=== PATIENT | female | born 1950 | race Caucasian/White ===

== ENCOUNTER 2019-12-01 08:43 | Outpatient (CLI) | payer MEDICARE, SELFPAY ==
--- NOTE | ~2019-12-01 | CT_ITS ---
EXAMINATION: CT lung screening EXAM DATE: 12/01/2019 09:12 INDICATION: Bladder cancer. Personal history of nicotine dependence. TECHNIQUE: Spiral low dose CT of the chest without contrast. Axial, coronal and sagittal images were reviewed. The dose-length product (DLP) for this examination was 61.85 mGy-cm. The exposure was ta ilored according to patient size (auto mA exposure control), and iterative reconstruction (ASIR) was used as additional dose reduction technique. Comparison is made to prior examination from 08/16/2018. FINDINGS: Resolution of previously seen endobronchial debris. There is mild emphysema and hyperinfla tion. Biapical scarring and change. There is 3 mm left suprahilar nodule unchanged. There is no medi astinal, hilar or axillary lymphadenopathy. There are no pleural or pericardial effusions. There is no pneumothorax. Heart normal in size. No evidence of coronary arterial calcification. Upper a bdomen is unremarkable. Small sclerotic right seventh rib focus unchanged. IMPRESSION: Lung-RADS category 2, benign appearance or behavior (<1% chance of malignancy); recommend continued LDCT screening in 1 year. Reviewed, dictated and finalized at location B. S [employer]
== END 2019-12-01 08:44 | disposition home or self-care (01) ==
PROVIDERS: PCP Internal Medicine; Visit Provider Internal Medicine
DX: Z12.2 Encounter for screening for malignant neoplasm of respiratory organs (principal); Z87.891 Personal history of nicotine dependence
CPT/HCPCS: G0297

== ENCOUNTER 2020-03-20 10:09 | Observation (INO) | payer MEDICARE, SELFPAY ==
[2020-03-20] VITALS (10 sets, daily range): BP systolic 150–168; BP diastolic 43–63; PULSE 74–83; RESP 15–20; TEMP 36.8–37.3; O2SAT 96–98; BMI 27.1
--- NOTE | 2020-03-20 10:15 | ED.GENADULT ---
HPI - General Adult General Chief complaint: Recheck/Abnormal Lab/Rx Stated complaint: LOW H/H Time Seen by Provider: 03/20/20 10:15 Source: patient Mode of arrival: ambulatory Limitations: no limitations History of Present Illness HPI narrative: Patient is a 69-year-old female who presents for evaluation at the request of her primary care provider for low hemoglobin. Per PCP Dr. Guerra, patient reportedly had been seeing him for shortness of breath. Patient had reported worsening shortness of breath with exertion. Patient had denied any dark or tarry stools. Patient was found to have an outpatient hemoglobin of 6.4, microcytic anemia. Patient presented to our facility for evaluation and possible transfusion. At the time of assessment, patient reports that she has been short of breath with exertion, and occasionally at rest. She states she has been very fatigued. No lightheadedness or dizziness. No dark or tarry stools. Related Data Home Medications Medication Instructions Recorded Confirmed aspirin 81 mg tablet,delayed 81 mg PO DAILY 11/16/19 01/09/20 release clopidogrel 75 mg tablet 75 mg PO DAILY 11/16/19 01/09/20 fluticasone propionate 50 2 spray NASAL DAILY 11/16/19 01/09/20 mcg/actuation nasal spray,suspension Allergies Allergy/AdvReac Type Severity Reaction Status Date / Time No Known Allergies Allergy Verified 03/20/20 10:16 Review of Systems Review of Systems: Narrative: CONSTITUTIONAL: Denies fever, chills, or sweats. EYES: Denies visual changes, redness, or discharge. ENT: Denies rhinorrhea, congestion, sore throat, or otalgia. CARDIOVASCULAR: Denies chest pain, palpitations, or edema. RESPIRATORY: Reports shortness of breath GASTROINTESTINAL: Denies abdominal pain, nausea, vomiting, or diarrhea. GENITOURINARY: Denies dysuria or hematuria. SKIN: Denies rash or itching. MUSCULOSKELETAL: Denies back pain, joint pain, or myalgia. NEUROLOGIC: Denies headache, numbness, or weakness. Reports fatigue. [facility] Past Medical History Medical History Anxiety with depression Benign essential hypertension Bladder tumor BMI 27.0-27.9,adult DM type 2 (diabetes mellitus, type 2) Encounter for Medicare annual wellness exam Hearing loss Hx-TIA (transient ischemic attack) Hyperlipidemia On nursing home drug therapy Ovarian mass Personal history of nicotine dependence Right carotid bruit Toxic nodular goiter URI (upper respiratory infection) Family History Family History Mother Family history of osteoporosis Family history of Parkinson's disease Family history of primary malignant neoplasm of liver Family history of malignant neoplasm of breast in first degree relative Father Family history of heart disease in male family member before age 55 Family history of cardiovascular disease Family history of chronic obstructive pulmonary disease Social History Social History Second hand tobacco smoke exposure: Yes Alcohol intake: never Exam Narrative: Exam Narrative: GENERAL: Awake, alert, conversant HEAD: Normocephalic, atraumatic. EYES: PERRLA and EOMI. ENT: Nares clear, no rhinorrhea or epistaxis. Mucous membranes moist. NECK: Supple. CHEST: No respiratory distress, breathing even and non labored HEART: Regular rate, sinus rhythm ABDOMEN:Non distended, non tender Rectal: Guaic negative EXTREMITIES: Normal range of motion. No edema. SKIN: Pale, warm, dry, no rash. NEURO:No focal deficits. Alert and oriented x3 Course Vital Signs Vital signs: Vital Signs Temperature 36.9 C 03/20/20 10:14 Pulse Rate 83 03/20/20 10:14 Respiratory Rate 15 03/20/20 10:14 Blood Pressure 158/54 H 03/20/20 10:14 Pulse Oximetry 97 03/20/20 10:14 Temperature 36.9 C 03/20/20 10:14 Pulse Rate 81 03/20/20 11:01 Respiratory Ra
[2020-03-20 10:36] LABS: Basophils Absolute Auto 0.1 K/mm3 (0.0-0.1); Basophils Percent Auto 0.9 % (0.2-1.2); Eosinophils Absolute Auto 0.1 K/mm3 (0-0.3); Eosinophils Percent Auto 2.2 % (0-4.4); Hematocrit 22.1 % (37.0-47.0); Immature Granulocyte Absolute 0.01 K/mm3 (0.00-0.031); Immature Granulocyte Percent A 0.2 % (0-0.5); Lymphocytes Absolute Auto 1.43 K/mm3 (0.9-3.2); Lymphocytes Percent Auto 24.6 % (18.3-44.2); Mean Corpuscular HGB Conc 29.9 g/dl (32-36); Mean Corpuscular Hemoglobin 20.1 pg (26-34); Mean Corpuscular Volume 67.4 fl (80-100); Mean Platelet Volume 9.7 fl (7.4-10.4); Monocytes Absolute Auto 0.5 K/mm3 (0.1-0.6); Monocytes Percent Auto 8.6 % (2.6-8.5); Neutrophils Absolute Auto 3.7 K/mm3 (1.3-6.7); Neutrophils Percent Auto 63.5 % (45.5-73.1); Platelet Count Result 434 k/mm3 (150-375); Red Blood Count 3.28 M/mm3 (4.2-5.4); Red Cell Distribution Width 18.5 % (11.5-14.5); White Blood Count 5.8 K/mm3 (4.5-10.0)
[2020-03-20 10:37] LABS: Hemoglobin 6.6 g/dL (12.0-15.0)
[2020-03-20 10:43] LABS: Hypochromasia 3+ (NORMAL); Ovalocytes 1+ (NORMAL); Platelet Estimate Increased (Adequate)
[2020-03-20 10:48] LABS: Blood Urea Nitrogen 19 mg/dL (7-17); Calcium 9.1 mg/dL (8.4-10.2); Carbon Dioxide 27 mmol/L (22-30); Chloride 103 mmol/L (98-107); Estimated CRCL calculation 45 ml/min; Estimated Glomerular Filt Rate > 60; Glucose 129 mg/dL (65-105); Potassium 4.2 mmol/L (3.4-5.0); Sodium 137 mmol/L (137-145)
[2020-03-20 10:49] LABS: Prothrombin Time 12.8 Seconds (11.1-14.7)
[2020-03-20 10:50] LABS: Partial Thromboplastin Time 23.5 SECONDS (22.3-36.8)
[2020-03-20 13:05] LABS: Iron 22 ug/dL (37-170)
[2020-03-20 13:14] LABS: Percent Iron Saturation 5 % (20-50)
[2020-03-20 13:26] LABS: Immature Reticulocyte Fraction 27.1 % (3.0-15.9); Reticulocyte Hemoglobin Conten 18.2 pg (28.2-35.7); Reticulocyte Percent 1.74 % (0.7-4.3); Reticulocytes Absolute 0.06 B/L (32.2-175.7)
--- NOTE | 2020-03-20 13:39 | WPDGICN ---
Assessment and Plan Assessment and plan (1) Symptomatic anemia: Code(s): D64.9 - Anemia, unspecified Status: Acute (2) Microcytic anemia: Code(s): D50.9 - Iron deficiency anemia, unspecified Status: Acute Assessment and Plan: Profound microcytic anemia identified in the emergency room. No obvious signs of GI blood loss. Stool Hemoccult ER actually was negative. Plan is to check iron studies. Repeat stool Hemoccult. Plan is for both colonoscopy an EGD to assess for possible GI etiology for anemia. If GI workup negative than hematology evaluation may be required. We will follow with you during this hospital stay. Patient is to be transfused to a stable hemoglobin as she is symptomatic at this level. (3) Ovarian mass: Code(s): N83.8 - Other noninflammatory disorders of ovary, fallopian tube and broad ligament Status: Acute Assessment and Plan: Patient reports a pelvic mass followed by Gynecology. She may need follow-up. It is uncertain how this contributes to her current anemia. (4) Bladder tumor: Code(s): D49.4 - Neoplasm of unspecified behavior of bladder Status: Acute Assessment and Plan: Bladder tumor resected in felt cured. 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 Patient reports progressive fatigue since November of 2019. She has become increasingly shortness of breath. Dyspnea on exertion. She has had significant weakness and muscle aches. She recently saw primary care physician Dr. Guerra who obtained a CBC revealing profound anemia. For this reason she was referred to the emergency room and subsequently admitted to the hospital. Patient denies any evidence for GI bleeding. Her stools are remain normal she denies any black stools. She has had no recent blood in her urine except prior to bladder surgery last year. She has no bruising. No other signs of blood loss. Any nose bleeds in the past have been minimal in nature. She denies abdominal pain. Her appetite is normal she has not lost weight. Her bowel habits are also normal. Family history is noncontributory. Patient's past history is significant for a toxic nodular goiter which is treated she is now on therapy for this. She had a history of a bladder carcinoma treated in resected in August of 2019. Review of Systems Review of Systems: All systems reviewed & are unremarkable except as noted in HPI and below PMFSH Past Medical History Medical History Anxiety with depression Benign essential hypertension Bladder tumor BMI 27.0-27.9,adult DM type 2 (diabetes mellitus, type 2) Encounter for Medicare annual wellness exam Hearing loss Hx-TIA (transient ischemic attack) Hyperlipidemia On [facility] drug therapy Ovarian mass Personal history of nicotine dependence Right carotid bruit Toxic nodular goiter URI (upper respiratory infection) Family History Family History Mother Family history of osteoporosis Family history of Parkinson's disease Family history of primary malignant neoplasm of liver Family history of malignant neoplasm of breast in first degree relative Father Family history of heart disease in male family member before age 55 Family history of cardiovascular disease Family history of chr
[2020-03-20 13:41] LABS: Ferritin 4.65 ng/mL (11.1-264)
[2020-03-20] MEDS: SODIUM CHLORIDE 0.9% IV 250 ML 30 ML IV CONT (13:55)
--- NOTE | 2020-03-20 14:16 | ADMGEN ---
This patient, Mojgan Gold, was admitted to 2 Medical Room 257-01. Patient/family oriented to hospital policies and general routines including ID bracelet, bed and alarms, visiting hours, pain management, procedures, bathroom and other care routines, personal items, smoking policy, room service/diet, and visiting hours. Valuables list has been completed. Information on how to activate the Rapid Response Team has been discussed. Patient/Family are encouraged to report perceived risks to care and to ask questions if they do not understand what they are told or what they should do.
[2020-03-20] MEDS: PEG (High)/E-LYTE SOLN 4,000 ML BTL 4000 ML PO (15:31)
--- NOTE | 2020-03-20 15:40 | PM.IMHP ---
H&P: HPI History of Present Illness Chief complaint: Low hemoglobin. Narrative: Mojgan Gold is a 69-year-old female with history of TIA, GERD, hypertension, type 2 diabetes mellitus, hyperthyroidism, and history of bladder cancer who presented to the emergency department earlier today for evaluation of ?low hemoglobin.? A patient labs were drawn yesterday for evaluation of progressive shortness of breath and fatigue over the past several months. She was found to be anemic and was directed to the emergency department. With further questioning, she does report an increase in her GERD symptoms over the past several months her symptoms and she has begun taking Nexium once again. She has not had any overt abdominal pain, however. Her stools are unremarkable and she denies melena and hematochezia. She is on aspirin and clopidogrel due to history of TIA, and on occasion she will take ibuprofen (maybe 1 time a week for headache or pain). She drinks a couple of cups of coffee a day and she denies any significant alcohol use. No history of peptic ulcers. She further denies epistaxis, hemoptysis, hematemesis, vaginal bleeding, hematuria (although she did have hematuria and fall 2018 which led to the diagnosis of her bladder cancer). Review of Systems Review of Systems: Narrative: Twelve systems were reviewed with pertinent positives and negatives as per HPI. Weight has remained stable, and in fact she thinks she may have gained a few pounds during this [id number] order. She rarely has lightheadedness with position changes. No fever, chills, or sweats. She denies recent cold and flu symptoms. No chest pain, palpitations, or racing heart. No nausea, vomiting, or diarrhea. She denies dysuria and hematuria. Except as documented, all other systems were reviewed and are negative. [facility] Past Medical History Medical History (Updated 03/20/20 @ 20:22 by Karolina Feldman PA-C) Adnexal mass (~06/2019) 8.1 centimeter hypoechoic mass in the left adnexa with differential diagnosis to include pedunculated fibroid or ovarian mass. Anxiety with depression Benign essential hypertension Bladder tumor (~08/2019) Status post TURBT per Dr. Herrera. Gastroesophageal reflux disease Hearing loss Hyperlipidemia Hyperthyroidism Moderate mitral valve regurgitation Noted on [facility] in February 2016. Osteoporosis Right carotid bruit Carotid Doppler ultrasounds showed < 50% stenosis in bilateral internal carotid arteries in June 2019. Toxic nodular goiter Transient ischemic attack Type 2 diabetes mellitus Hemoglobin A1c was 6.1% in March 2019. Surgical History Surgical History (Updated 03/20/20 @ 20:19 by Karolina Feldman PA-C) Status post surgical removal and fulguration of bladder neoplasm (~08/2019) Family History Family History Mother Family history of osteoporosis Family history of Parkinson's disease Family history of primary malignant neoplasm of liver Family history of malignant neoplasm of breast in first degree relative Father Family history of heart disease in male family member before age 55 Family history of cardiovascular disease Family history of chronic obstructive pulmonary disease Social History Social History (Updated 03/20/20 @ 20:20 by Karolina Feldman PA-C) Social History: The patient lives in [place] with her spouse. They have 2 children. 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 She has smoked between 0.5 and 1 pack of cigarettes per day and quit in October 2019. She denies alcohol and illicit substance abuse. She designates her , Presley, as her surrogate decision maker and she wishes to be a full code. Smoking packs per day: 1 Smoking cigarettes per day: 20.0 Years smoked: 50 Smoking pack-years: 50.00 Smoking status: Former smoker Second hand tobacco smoke exposure: Yes Alcohol intake: never Substance use: never Gender identity (if
[2020-03-20 16:59] LABS: Glucose Point of Care 89 (65-105)
[2020-03-20 20:33] LABS: IFOB Positive Control Positive; Immunochemical Fecal Occult Bl Positive (N)
[2020-03-20] MEDS: PAROXETINE 20 MG TABLET 40 MG PO (22:14)
[2020-03-20] MEDS: buPROPion HCL XL (24 HR) 150 MG TABCR PO (22:14)
[2020-03-20 22:29] LABS: Glucose Point of Care 103 (65-105)
[2020-03-21] VITALS (9 sets, daily range): BP systolic 133–172; BP diastolic 37–55; PULSE 74–90; RESP 14–19; TEMP 36.7–37.3; O2SAT 94–98
[2020-03-21 05:17] LABS: Basophils Percent Auto 0.5 % (0.2-1.2); Eosinophils Absolute Auto 0.2 K/mm3 (0-0.3); Hematocrit 23.7 % (37.0-47.0); Hemoglobin 7.1 g/dL (12.0-15.0); Immature Granulocyte Absolute 0.02 K/mm3 (0.00-0.031); Immature Granulocyte Percent A 0.3 % (0-0.5); Lymphocytes Absolute Auto 1.98 K/mm3 (0.9-3.2); Lymphocytes Percent Auto 26.3 % (18.3-44.2); Mean Corpuscular Hemoglobin 20.5 pg (26-34); Mean Corpuscular Volume 68.3 fl (80-100); Mean Platelet Volume 9.4 fl (7.4-10.4); Monocytes Absolute Auto 0.7 K/mm3 (0.1-0.6); Monocytes Percent Auto 8.6 % (2.6-8.5); Neutrophils Absolute Auto 4.7 K/mm3 (1.3-6.7); Neutrophils Percent Auto 62.3 % (45.5-73.1); Platelet Count Result 362 k/mm3 (150-375); Red Blood Count 3.47 M/mm3 (4.2-5.4); Red Cell Distribution Width 19.4 % (11.5-14.5); White Blood Count 7.5 K/mm3 (4.5-10.0)
[2020-03-21 05:22] LABS: Hemoglobin A1C 6.4 % (<5.7)
[2020-03-21 05:31] LABS: Alanine Aminotransferase 29 U/L (4-35); Albumin Level 3.6 g/dL (3.5-5.1); Alkaline Phosphatase 66 U/L (38-126); Aspartate Amino Transferase 31 U/L (14-36); Bilirubin,Total 0.3 mg/dL (0.2-1.3); Blood Urea Nitrogen 15 mg/dL (7-17); Calcium 8.3 mg/dL (8.4-10.2); Carbon Dioxide 26 mmol/L (22-30); Chloride 105 mmol/L (98-107); Estimated CRCL calculation 50 ml/min; Estimated Glomerular Filt Rate > 60; Glucose 88 mg/dL (65-105); Magnesium 1.9 mg/dL (1.6-2.3); Sodium 137 mmol/L (137-145)
--- NOTE | 2020-03-21 07:04 | PC.NURSE ---
Pt to GI lab for colonoscopy/EGD. Purse, phone, ipad locked in cabinet.
[2020-03-21] MEDS: LACTATED RINGERS 1,000 ML 150 ML IV CONT (07:15)
[2020-03-21 07:25] LABS: Free T4 Free Thyroxine Reflex 1.11 ng/dL (0.78-2.19)
[2020-03-21 07:27] LABS: Glucose Point of Care 103 (65-105)
--- NOTE | 2020-03-21 07:27 | WPDANESEPPF ---
Anes - Initial Pre Proc Eval Procedure: Operation Date: 03/21/20 08:00 Proposed Procedures p Esophagogastroduodenoscopy & Colonoscopy - Praneeth Corral MD Date/Time: 03/21/20 07:27 Surgeon: Elizabeth Lane MD Pre Op Diagnosis: Low hemoglobin. Patient Data Age: 69 Gender: F Height: 5 ft 2 in Weight: 67.2 kg Last Vital Signs Temp 98.4 F 03/21/20 07:10 Pulse 84 03/21/20 07:10 Resp 16 03/21/20 07:10 BP 172/50 H 03/21/20 07:10 Pulse Ox 96 03/21/20 07:10 Allergies Allergy/AdvReac Type Severity Reaction Status Date / Time No Known Allergies Allergy Verified 03/21/20 07:07 Home Medications Medication Instructions Recorded Confirmed Type aspirin 81 mg tablet,delayed 81 mg PO DAILY 11/16/19 03/20/20 History release bupropion HCl 150 mg 24 hr tablet, 150 mg PO QAM #90 tablet 11/16/19 03/20/20 Rx extended release clopidogrel 75 mg tablet 75 mg PO DAILY 11/16/19 03/20/20 History fluticasone propionate 50 2 spray NASAL DAILY 11/16/19 03/20/20 History mcg/actuation nasal spray,suspension metformin 500 mg tablet 500 mg PO BID #180 tablet 11/16/19 03/20/20 Rx paroxetine HCl 40 mg tablet 40 mg PO DAILY #90 tablet 11/16/19 03/20/20 Rx atorvastatin 10 mg PO DAILY 03/20/20 03/20/20 History ezetimibe [Zetia] 10 mg PO DAILY 03/20/20 03/20/20 History methimazole 5 mg PO DAILY 03/20/20 03/20/20 History Laboratory Tests 03/20/20 03/20/20 03/20/20 10:20 10:20 10:20 WBC 5.8 K/mm3 K/mm3 (4.5-10.0) RBC 3.28 M/mm3 L M/mm3 (4.2-5.4) Hgb 6.6 g/dL L* g/dL (12.0-15.0) Hct 22.1 % L % (37.0-47.0) MCV 67.4 fl L fl (80-100) MCH 20.1 pg L pg (26-34) MCHC 29.9 g/dl L g/dl (32-36) RDW 18.5 % H % (11.5-14.5) Plt Count 434 k/mm3 H k/mm3 (150-375) MPV 9.7 fl fl (7.4-10.4) Immature Gran % (Auto) 0.2 % % (0-0.5) Neut % (Auto) 63.5 % % (45.5-73.1) Lymph % (Auto) 24.6 % % (18.3-44.2) [place] % (Auto) 8.6 % H % (2.6-8.5) Eos % (Auto) 2.2 % % (0-4.4) Baso % (Auto) 0.9 % % (0.2-1.2) Lymph # (Auto) 1.43 K/mm3 K/mm3 (0.9-3.2) [place] # (Auto) 0.5 K/mm3 K/mm3 (0.1-0.6) Eos # (Auto) 0.1 K/mm3 K/mm3 (0-0.3) Baso # (Auto) 0.1 K/mm3 K/mm3 (0.0-0.1) Abs Immat Gran (auto) 0.01 K/mm3 K/mm3 (0.00-0.031) Absolute Neuts (auto) 3.7 K/mm3 K/mm3 (1.3-6.7) Absolute Nucleated RBC 0.0 K/mm3 K/mm3 (0.0-0.012) Nucleated RBC % 0.0 % % (0.0-0.2) Platelet Estimate Increased (Adequate) Hypochromasia 3+ (NORMAL) Ovalocytes 1+ (NORMAL) Absolute Retic Percent Retic Immature Retic Fraction Retic Hgb Content PT 12.8 Seconds Seconds (11.1-14.7) INR 1.0 APTT 23.5 SECONDS SECONDS (22.3-36.8) Sodium 137 mmol/L mmol/L (137-145) Potassium 4.2 mmol/L mmol/L (3.4-5.0) Chloride 103 mmol/L mmol/L (98-107) Carbon Dioxide 27 mmol/L mmol/L (22-30) BUN 19 mg/dL H mg/dL (7-17) Creatinine 0.90 mg/dL mg/dL (0.7-1.0) Estim Creat Clear Calc 45 ml/min ml/min Estimated GFR > 60 (59 - ) Glucose 129 mg/dL H mg/dL (65-105) POC Capillary Glucose Hemoglobin A1c Calcium 9.1 mg/dL mg/dL (8.4-10.2) Magnesium Iron TIBC % Saturation Ferritin Total Bilirubin AST ALT Alkaline Phosphatase Total Protein Albumin TSH (Reflex) Free T4 Total T3 Stl Occult Blood (IFOB) Blood Type Antibody Screen Crossmatch
[2020-03-21] MEDS: BENZOCAINE (*SP) 60 ML SPRAY CAN (HURRICAINE) 1 SPRAY MUCOUS MEM (08:13)
--- NOTE | 2020-03-21 08:16 | SUR.OPER ---
EGD ENDED AT 818 COLONOSCOPY STARTED AT 828
[2020-03-21 08:22] LABS: Total Triiodothyronine (T3) 1.17 NG/ML (0.97-1.69)
[2020-03-21] MEDS: EZETIMIBE 10 MG TABLET PO (09:35)
[2020-03-21] MEDS: methiMAzole 5 MG TAB PO (09:35)
[2020-03-21] MEDS: ATORVASTATIN 10 MG TABLET PO (09:36)
[2020-03-21] MEDS: FERROUS SULFATE 324 MG TABLET PO (09:38)
[2020-03-21] MEDS: PANTOPRAZOLE 40 MG TABLET PO (09:38)
[2020-03-21] MEDS: IRON SUCROSE COMPLEX 200 MG in SODIUM CHLORIDE 0.9% IV 50 ML 120 MG IVPB (11:22)
[2020-03-21 11:32] LABS: Glucose Point of Care 105 (65-105)
--- NOTE | 2020-03-21 12:42 | PM.IMPN ---
Progress Note: A&P Assessment and Plan (1) Microcytic anemia: Code(s): D50.9 - Iron deficiency anemia, unspecified Status: Acute Assessment and Plan: Patient presents at the request of her primary care provider due to low Hgb on outpatient labs. She has been feeling fatigued over the last few months. Hgb 6.6 on arrival and she received 1 unit RBC yesterday 03/20. Iron studies consistent with iron deficiency anemia. IV Venofer x1 today, start oral iron supplementation. Dr. Corral consulted - appreciate input. Upper and lower GI eval today demonstrated uncomplicated internal hemorrhoids, single nonbleeding gastric ulcer in the antrum. Continue Protonix, avoid NSAIDs. Recommends repeat EGD in 2 months. Recheck H&H in AM. Anticipate possible discharge tomorrow if H&H are stable. (2) Benign essential hypertension: Code(s): I10 - Essential (primary) hypertension Status: Acute Assessment and Plan: BPs followed by Dr Guerra, checks blood pressures at home. Elevated here. Follow-up with PCP and may need to start on oral antihypertensives if BPs still elevated out of this acute setting. (3) Type 2 diabetes mellitus: Qualifiers: Diabetes mellitus terminal carman insulin use: without correction use Diabetes mellitus complication status: without complication Qualified Code(s): E11.9 - Type 2 diabetes mellitus without complications Code(s): E11.9 - Type 2 diabetes mellitus without complications Status: Acute Assessment and Plan: Hgb A1c is 6.4. Home metformin is held currently. Continue monitor with Accu-Cheks and cover with SSI. (4) Hyperthyroidism: Code(s): E05.90 - Thyrotoxicosis, unspecified without thyrotoxic crisis or storm Status: Acute Assessment and Plan: History of toxic nodular goiter followed by endocrinology. Continue home methimazole. Subjective Date/time seen: 03/21/20 12:35 Interval history: Ms. Gold is a 69yo F admitted for anemia. She reports feeling tired but overall feels okay. She denies any chest pain or shortness of breath today. No black or red bloody stools. No nausea or vomiting and tolerated a diet well after GI eval this morning. She has no abdominal pain. Review of Systems Review of Systems: Narrative: Twelve systems were reviewed with pertinent positives and negatives as per HPI. Exam Narrative: Exam Narrative: General: Female resting comfortably in bed in no acute distress. HEENT: Normocephalic, EOMI, oral mucosa moist. Cardiovascular: Rate and rhythm are regular. Respiratory: Lungs clear to auscultation all garcia. Non-labored breathing. Abdomen: Soft, non-tender, non-distended, bowel sounds present. Extremities: Peripheral pulses intact. No edema. Neuro: No focal neurological deficits. Speech is clear. Objective Data Vital Signs Vital Signs: Last Vital Signs Temp 98.0 F 03/21/20 14:00 Pulse 81 03/21/20 14:00 Resp 16 03/21/20 14:00 BP 158/55 H 03/21/20 14:00 Pulse Ox 98 03/21/20 14:00 Intake/Output Intake/Output: Intake & Output 03/18/20 03/19/20 03/20/20 03/21/20 23:59 23:59 23:59 23:59 Intake Total 1010 350 Output Total 750 Balance 260 350 Meds/Results Medications: Active Medications Generic Name Dose Route Start Last Admin Trade Name Freq PRN Reason Stop Dose Admin Acetaminophen 650 mg 03/20/20 11:37 Tylenol Tablet PO Q4H PRN Mild Pain (1-3) or Fever Atorvastatin Calcium 10 mg 03/21/20 09:00 03/21/20 09:36 Lipitor PO 10 mg DAILY ENA Administration Bupropion HCl 150 mg 03/20/20 22:05 03/20/20 22:14 Wellbutrin Xl (24 Hr) PO 150 mg HS ENA Administration Dextrose 12.5 gm 03/20/20 16:00 Dextrose 50% Syringe IV PUSH PRN PRN Hypoglycemia Protocol Ezetimibe 10 mg 03/21/20 09:00
[2020-03-21 16:40] LABS: Glucose Point of Care 105 (65-105)
[2020-03-21] MEDS: buPROPion HCL XL (24 HR) 150 MG TABCR PO (20:51)
[2020-03-21] MEDS: PAROXETINE 20 MG TABLET 40 MG PO (20:51)
[2020-03-21 20:59] LABS: Glucose Point of Care 126 (65-105)
[2020-03-21] MEDS: NEBIVOLOL HCL 5 MG TABLET 10 MG PO (23:35)
[2020-03-22 05:26] LABS: Hematocrit 24.3 % (37.0-47.0); Hemoglobin 7.3 g/dL (12.0-15.0)
[2020-03-22 06:00] VITALS: BP 159/48; PULSE 85; RESP 12; TEMP 36.9; O2SAT 96
[2020-03-22 07:36] LABS: Glucose Point of Care 115 (65-105)
[2020-03-22 07:59] VITALS: PULSE 85; RESP 12; O2SAT 96
[2020-03-22] MEDS: FERROUS SULFATE 324 MG TABLET PO (08:48)
[2020-03-22] MEDS: NEBIVOLOL HCL 5 MG TABLET 10 MG PO (08:48)
[2020-03-22] MEDS: PANTOPRAZOLE 40 MG TABLET PO (08:49)
[2020-03-22] MEDS: methiMAzole 5 MG TAB PO (08:49)
[2020-03-22] MEDS: EZETIMIBE 10 MG TABLET PO (08:49)
[2020-03-22] MEDS: ATORVASTATIN 10 MG TABLET PO (08:50)
--- NOTE | 2020-03-22 09:07 | WPDGIPROGNO ---
Progress Note: A&P Additional Plan Patient alert and comfortable this morning. No additional bleeding. She denies abdominal pain. Physical exam reveals Vital Signs to be stable. HEENT exam unremarkable. She is anicteric. Lungs are clear. Heart without murmur. Abdomen bowel sounds are present soft nontender. Impression 1. Gastric ulcer. Most likely source of chronic GI blood loss. Suspect is been present for several months. Plan to avoid nonsteroidal anti-inflammatory agents. These are felt to be etiology for her ulcer. Continue proton pump inhibitor after discharge. Follow-up EGD in 2 months advised. Oral iron replacement to continue as well. Subjective Date/time seen: 03/22/20 09:07 Objective Data Vital Signs Vital Signs: Vital Signs - 24 hr 03/21/20 09:32 03/21/20 14:00 03/21/20 22:00 Temperature 36.7 C 37.3 C Pulse Rate 74 81 83 Respiratory Rate 19 16 16 Blood Pressure 158/55 H 152/48 H Pulse Oximetry 96 98 95 03/21/20 23:35 03/22/20 06:00 03/22/20 07:59 Temperature 36.9 C Pulse Rate 90 85 85 Respiratory Rate 12 12 Blood Pressure 159/48 H Pulse Oximetry 96 96 Intake/Output Intake/Output: Intake & Output 03/19/20 03/20/20 03/21/20 03/22/20 23:59 23:59 23:59 23:59 Intake Total 1010 1130 750 Output Total 750 150 800 Balance 260 980 -50 Meds/Results Medications: Active Medications Generic Name Dose Route Start Last Admin Trade Name Freq PRN Reason Stop Dose Admin Acetaminophen 650 mg 03/20/20 11:37 Tylenol Tablet PO Q4H PRN Mild Pain (1-3) or Fever Atorvastatin Calcium 10 mg 03/21/20 09:00 03/22/20 08:50 Lipitor PO 10 mg DAILY ENA Administration Bupropion HCl 150 mg 03/20/20 22:05 03/21/20 20:51 Wellbutrin Xl (24 Hr) PO 150 mg HS ENA Administration Dextrose 12.5 gm 03/20/20 16:00 Dextrose 50% Syringe IV PUSH PRN PRN Hypoglycemia Protocol Ezetimibe 10 mg 03/21/20 09:00 03/22/20 08:49 Zetia PO 10 mg DAILY ENA Administration Ferrous Sulfate 324 mg 03/21/20 09:00 06/04/20 08:48 Ferrous Sulfate PO 324 mg DAILY ENA Administration Fluticasone Propionate 2 spray 03/21/20 09:00 03/22/20 08:50 Flonase 0.05% Nasal [place] NASAL Not Given DAILY ENA Glucagon 1 mg 03/20/20 16:00 Glucagon For Inj IM PRN PRN Hypoglycemia Protocol Glucose 15 gm 03/20/20 16:00 Glutose 15 PO PRN PRN Hypoglycemia Protocol Dextrose 1,000 mls @ 100 mls/hr 03/20/20 16:00 Dextrose 5% 1,000 Ml IVPB PRN PRN Hypoglycemia Protocol Insulin Aspart 2 - 5 units 03/20/20 17:00 03/22/20 08:48 Novolog SUB-Q Not Given [facility] Protocol Methimazole 5 mg 03/21/20 09:00 03/22/20 08:49 Tapazole PO 5 mg DAILY ENA Administration Nebivolol 10 mg 03/21/20 21:00 03/22/20 08:48 Bystolic PO 10 mg DAILY ENA Administration Ondansetron HCl 4 mg 03/20/20 11:37 Zofran Inj IV PUSH Q4H PRN Nausea Pantoprazole Sodium 40 mg 03/21/20 09:00 03/22/20 08:49 Protonix PO 40 mg QAM ENA Administration Paroxetine HCl 40 mg 03/20/20 22:10 03/21/20 20:51 Paxil PO 40 mg HS ENA Administration Labs Labs: Laboratory Results - last 24 hr 03/21/20 03/21/20 03/21/20 11:21 16:38 20:55 Hgb Hct POC Capillary Glucose 105 105 126 H 03/22/20 03/22/20 05:12 07:34 Hgb 7.3 L Hct 24.3 L POC Capillary Glucose 115 H
--- NOTE | 2020-03-22 16:11 | PM.DS ---
DS: Admitting Diagnosis Admitting Diagnosis Admitting Diagnosis: Anemia, unspecified DS: Discharge Diagnosis Discharge Diagnosis (1) Microcytic anemia: Code(s): D50.9 - Iron deficiency anemia, unspecified Status: Acute Assessment and Plan: Date of Service 03/22/20 Ms. Gold is a 69yo F with history of hypertension, non-insulin dependent type 2 diabetes mellitus, and hyperthyroidism who presented to the ED at the instruction of PCP due to low hemoglobin on outpatient labs. She described feeling fatigued over the last several months. Hemoglobin was 6.6 on arrival and she received 1 unit packed RBC transfusion 03/20. GI was consulted and she underwent EGD and colonoscopy by Dr Corral 03/21/20 which demonstrated a single benign appearing, non-bleeding ulcer in the antrum. She was started on pantoprazole and advised to avoid NSAIDs. Iron studies demonstrated iron deficiency anemia. She received one iron infusion and was started on oral iron supplementation. She did not have any abdominal pain, nausea or vomiting. She was feeling improved and a little stronger prior to discharge. She was hemodynamically stable for discharge 03/22/20 with instructions to follow up with Dr Guerra for her anemia and schedule repeat EGD with Dr Corral in 2 months. Blood pressures elevated 150s 160s systolic here. Follow up with PCP. Consultations: -- GI - Dr Corral Patient presents at the request of her primary care provider due to low Hgb on outpatient labs. She has been feeling fatigued over the last few months. Hgb 6.6 on arrival and she received 1 unit RBC yesterday 03/20. Iron studies consistent with iron deficiency anemia. IV Venofer x1, started oral iron supplementation. Dr. Corral consulted. Upper and lower GI eval 03/21/20 demonstrated uncomplicated internal hemorrhoids, single nonbleeding gastric ulcer in the antrum. Continue Protonix, avoid NSAIDs. Recommends repeat EGD in 2 months H&H low but stable at discharge and patient is feeling well. Repeat labs outpatient and follow up with Dr Guerra. (2) Benign essential hypertension: Code(s): I10 - Essential (primary) hypertension Status: Acute Assessment and Plan: BPs followed by Dr Guerra, checks blood pressures at home. Elevated here. Follow-up with PCP and may need to start on oral antihypertensives if BPs still elevated out of this acute setting. (3) Type 2 diabetes mellitus: Qualifiers: Diabetes mellitus halfway insulin use: without halfway use Diabetes mellitus complication status: without complication Qualified Code(s): E11.9 - Type 2 diabetes mellitus without complications Code(s): E11.9 - Type 2 diabetes mellitus without complications Status: Acute Assessment and Plan: Hgb A1c is 6.4. Home metformin resumed at discharge. (4) Hyperthyroidism: Code(s): E05.90 - Thyrotoxicosis, unspecified without thyrotoxic crisis or storm Status: Acute Assessment and Plan: History of toxic nodular goiter followed by endocrinology. Continue home methimazole. DS: Summary Time Spent with Patient Time attestation: Total time spent providing and/or coordinating discharge services: 35 minutes Exam Narrative: Exam Narrative: Last Vital Signs Temp 98.4 F 03/22/20 06:00 Pulse 85 03/22/20 07:59 Resp 12 03/22/20 07:59 BP 159/48 H 03/22/20 06:00 Pulse Ox 96 03/22/20 07:59 General: Female resting comfortably in bed in no acute distress. HEENT: Normocephalic, EOMI, oral mucosa moist. Cardiovascular: Rate and rhythm are regular. Respiratory: Lungs clear to auscultation all garcia. Non-labored breathing. A
== END 2020-03-22 11:55 | disposition home or self-care (01) ==
LOC: ANHED 11:42 → ANH2MED 11:56
PROVIDERS: Internal Medicine Gastroenterology; Physician Assistant; Admitting Provider Hospitalist; Emergency Provider Emergency Medicine; PCP Internal Medicine; Visit Provider Hospitalist
PROC: 0DJ08ZZ Inspection of Upper Intestinal Tract, Via Natural or Artificial Opening Endoscopic (ICD-10-PCS; CPT 43235; principal; 2020-03-21 08:00)
DX: K25.4 Chronic or unspecified gastric ulcer with hemorrhage (principal); D50.9 Iron deficiency anemia, unspecified; K29.50 Unspecified chronic gastritis without bleeding; K64.8 Other hemorrhoids; I10 Essential (primary) hypertension; E78.5 Hyperlipidemia, unspecified; E11.9 Type 2 diabetes mellitus without complications; E05.90 Thyrotoxicosis, unspecified without thyrotoxic crisis or storm; K21.9 Gastro-esophageal reflux disease without esophagitis; N83.8 Other noninflammatory disorders of ovary, fallopian tube and broad ligament; Z79.82 Long term (current) use of aspirin; Z79.84 Long term (current) use of oral hypoglycemic drugs; Z79.899 Other long term (current) drug therapy; Z85.51 Personal history of malignant neoplasm of bladder; Z86.73 Personal history of transient ischemic attack (TIA), and cerebral infarction without residual deficits; Z87.891 Personal history of nicotine dependence
CPT/HCPCS: 43239; 45378; 36415; 36430; 80048; 80053; 82274; 82728; 83036; 83540; 83550; 83735; 84439; 84443; 84480; 85014; 85018; 85025; 85046; 85610; 85730; 86850; 86900; 86901; 86923; 88305; 96361; 96374; 99285; A9270; G0378; J1756; J2704; J7050; J7120; P9016

== ENCOUNTER 2020-05-17 15:31 | Outpatient (CLI) | payer MEDICARE, SELFPAY ==
--- NOTE | ~2020-05-17 | US_ITS ---
EXAMINATION: US pelvic complete w TV DATE: 05/17/2020 16:45 INDICATION: Follow-up left pelvic mass Comparison:07/12/2019 TECHNIQUE: Multiple transabdominal and endovaginal sonographic images of the pelvis performed. FINDINGS: The uterus measures 6.1 x 3.3 x 2.6 cm. The endometrial complex measures 3 mm. The right ovary is not visualized. In the left adnexa there is a large solid/hypoechoic mass measurin g 8.4 x 8.3 x 6.9 cm. There is no free fluid in the pelvis. There are no abnormal masses seen on either side. IMPRESSION: 1. Large solid hypoechoic left adnexal mass measuring 8.4 cm maximum dimension. This may represent a pedunculated fibroid or ovarian mass. Cannot exclude ovarian cystadenoma/cystadenocarcinoma. Further evaluation with MRI with and without contrast recommended. Reviewed, dictated and finalized at location A. IMPRESSION: 1. Large solid hypoechoic left adnexal mass measuring 8.4 cm maximum dimension. This may represent a pedunculated fibroid or ovarian mass. Cannot exclude ovar blanquita cystadenoma/cystadenocarcinoma. Further evaluation with MRI with and withou t contrast recommended.
== END 2020-05-17 15:32 | disposition home or self-care (01) ==
PROVIDERS: PCP Internal Medicine; Visit Provider Obstetrics & Gynecology Gynecology
DX: R19.09 Other intra-abdominal and pelvic swelling, mass and lump (principal)
CPT/HCPCS: 76830; 76856

== ENCOUNTER 2020-05-30 00:25 | Outpatient (CLI) | payer MEDICARE, SELFPAY ==
[2020-05-30 18:42] LABS: SARS-CoV-2 RNA PCR Negative
== END 2020-05-30 00:26 | disposition home or self-care (01) ==
LOC: ANHCOVIDDT 00:25
PROVIDERS: PCP Internal Medicine; Visit Provider Internal Medicine Gastroenterology
DX: Z20.828 Contact with and (suspected) exposure to other viral communicable diseases (principal); Z01.812 Encounter for preprocedural laboratory examination
CPT/HCPCS: 87635; C9803; U0003

== ENCOUNTER 2020-06-01 01:01 | Day surgery (SDC) | payer MEDICARE, SELFPAY ==
[2020-05-24 14:19] VITALS: BMI 25.4
[2020-06-01 06:27] VITALS: BP 143/58; PULSE 76; RESP 16; TEMP 36.8; O2SAT 96
[2020-06-01] MEDS: LACTATED RINGERS 1,000 ML 150 ML IV CONT (06:43)
[2020-06-01 07:01] LABS: Glucose Point of Care 125 (65-105)
--- NOTE | 2020-06-01 07:04 | WPDANESEPPF ---
Anes - Initial Pre Proc Eval Procedure: Operation Date: 06/01/20 07:30 Proposed Procedures p Esophagogastroduodenoscopy - Praneeth Corral MD Date/Time: 06/01/20 07:04 Surgeon: Praneeth Corral MD Pre Op Diagnosis: Gastric Ulcer Patient Data Age: 70 Gender: F Height: 5 ft 3 in Weight: 66.4 kg Last Vital Signs Temp 98.3 F 06/01/20 06:27 Pulse 76 06/01/20 06:27 Resp 16 06/01/20 06:27 BP 143/58 H 06/01/20 06:27 Pulse Ox 96 06/01/20 06:27 Allergies Allergy/AdvReac Type Severity Reaction Status Date / Time No Known Allergies Allergy Verified 06/01/20 06:26 Home Medications Medication Instructions Recorded Confirmed Type bupropion HCl 150 mg 24 hr tablet, 150 mg PO QAM #90 tablet 11/16/19 06/01/20 Rx extended release fluticasone propionate 50 2 spray NASAL DAILY 11/16/19 06/01/20 History mcg/actuation nasal spray,suspension metformin 500 mg tablet 500 mg PO BID #180 tablet 11/16/19 06/01/20 Rx paroxetine HCl 40 mg tablet 40 mg PO DAILY #90 tablet 11/16/19 06/01/20 Rx methimazole 5 mg PO DAILY 03/20/20 06/01/20 History nebivolol 10 mg tablet 10 mg PO DAILY #90 tablet 03/26/20 06/01/20 Rx clopidogrel 75 mg tablet 75 mg PO DAILY #90 tablet 03/27/20 06/01/20 Rx aspirin 81 mg tablet,delayed 81 mg PO DAILY 04/05/20 06/01/20 History release ferrous sulfate 325 mg (65 mg 325 mg PO DAILY 30 Days #30 tablet 04/09/20 06/01/20 Rx iron) tablet pantoprazole 40 mg tablet,delayed 40 mg PO QAM 30 Days #30 tablet 04/09/20 06/01/20 Rx release atorvastatin 40 mg tablet 40 mg PO DAILY #90 tablet 04/26/20 06/01/20 Rx losartan 50 mg tablet See Rx Instructions .ROUTE 05/14/20 06/01/20 Rx .COMPLEX #30 tablet ergocalciferol (vitamin D2) 50,000 unit PO WEEKLY 05/24/20 06/01/20 History melatonin 3 mg PO DAILY 05/24/20 06/01/20 History Laboratory Tests 06/01/20 06:46 POC Capillary Glucose 125 mg/dl H mg/dl (65-105) Patient hx anesthesia problems: none Family hx anesthesia problems: none PMFSH Past Medical History Medical History (Updated 04/05/20 @ 09:52 by Carol Caballero [facility]) Adnexal mass (~06/2019) 8.1 centimeter hypoechoic mass in the left adnexa with differential diagnosis to include pedunculated fibroid or ovarian mass. Anxiety with depression Benign essential hypertension Bladder tumor (~08/2019) Status post TURBT per Dr. Herrera. Gastroesophageal reflux disease Hearing loss Hospital discharge follow-up Hyperlipidemia Hyperthyroidism Moderate mitral valve regurgitation Noted on [facility] in February 2016. Osteoporosis Right carotid bruit Carotid Doppler ultrasounds showed < 50% stenosis in bilateral internal carotid arteries in June 2019. Toxic nodular goiter Transient ischemic attack Type 2 diabetes mellitus Hemoglobin A1c was 6.1% in March 2019. Surgical History Surgical History Status post surgical removal and fulguration of bladder neoplasm (~08/2019) Social History Social History Social History: The patient lives in [place] with her spouse. They have 2 children. 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 She has smoked between 0.5 and 1 pack of cigarettes per day and quit in October 2019. She denies alcohol and illicit substance abuse. She designates her , Presley, as her surrogate decision maker and she wishes to be a full code. Smoking packs per day: 1 Smoking cigarettes per day: 20.0 Years smoked: 50 Smoking pack-years: 50.00 Smoking status: Former smoker Second hand tobacco smoke exposure: Yes Alcohol intake: never Substance use: never Gender identity (if verbalized by the patient): Female Spiritual care concerns: No Anes - Eval Final PreProcedure Day of Procedure 06/01/20 07:04 Patient weight: normal Heart: regular rate and rhythm Lungs: clear to auscultation Airway: Mallampati scale class II Ne
[2020-06-01] MEDS: BENZOCAINE (*SP) 60 ML SPRAY CAN (HURRICAINE) 1 SPRAY MUCOUS MEM (07:32)
[2020-06-01 07:38] VITALS: BP 130/55; PULSE 76; RESP 18; O2SAT 93
--- NOTE | 2020-06-01 07:38 | WPDGICN ---
Assessment and Plan Assessment and plan (1) Gastric ulcer: Code(s): K25.9 - Gastric ulcer, unspecified as acute or chronic, without hemorrhage or perforation Status: Acute Assessment and Plan: Gastric ulcer found during recent hospitalization. By EGD on 03/21/2020. Patient now status post treatment with pantoprazole. She also has a history of iron deficiency has been on iron replacement. Plan is for follow-up EGD. Continue proton PPI. Avoid nonsteroidal anti-inflammatory agents. (2) ANA MARÍA (iron deficiency anemia): Code(s): D50.9 - Iron deficiency anemia, unspecified Status: Acute Assessment and Plan: Patient on iron replacement. Plans for follow-up CBC and iron studies in primary care office. GI Consult Note Consult date/time: 06/01/20 07:38 HPI: Mojgan Gold is a 70 year old female Seen in evaluation at the request of Dr. Ford Guerra. patient recently hospitalized with GI bleeding attributed to a gastric ulcer. Patient has been treated with pantoprazole 40 mg p.o. daily. She feels much improved. She denies abdominal pain. She has had no recent bleeding. Tolerating diet without difficulty. Family history is noncontributory. Review of Systems Review of Systems: All systems reviewed & are unremarkable except as noted in HPI and below PMFSH Past Medical History Medical History Adnexal mass (~06/2019) 8.1 centimeter hypoechoic mass in the left adnexa with differential diagnosis to include pedunculated fibroid or ovarian mass. Anxiety with depression Benign essential hypertension Bladder tumor (~08/2019) Status post TURBT per Dr. Herrera. Gastroesophageal reflux disease Hearing loss Hospital discharge follow-up Hyperlipidemia Hyperthyroidism Moderate mitral valve regurgitation Noted on [facility] in February 2016. Osteoporosis Right carotid bruit Carotid Doppler ultrasounds showed < 50% stenosis in bilateral internal carotid arteries in June 2019. Toxic nodular goiter Transient ischemic attack Type 2 diabetes mellitus Hemoglobin A1c was 6.1% in March 2019. Surgical History Surgical History Status post surgical removal and fulguration of bladder neoplasm (~08/2019) Family History Family History Mother Family history of osteoporosis Family history of Parkinson's disease Family history of primary malignant neoplasm of liver Family history of malignant neoplasm of breast in first degree relative Father Family history of heart disease in male family member before age 55 Family history of cardiovascular disease Family history of chronic obstructive pulmonary disease Social History Social History Social History: The patient lives in [place] with her spouse. They have 2 children. 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 She has smoked between 0.5 and 1 pack of cigarettes per day and quit in October 2019. She denies alcohol and illicit substance abuse. She designates her , Presley, as her surrogate decision maker and she wishes to be a full code. Smoking packs per day: 1 Smoking cigarettes per day: 20.0 Years smoked: 50 Smoking pack-years: 50.00 Smoking status: Former smoker Second hand tobacco smoke exposure: Yes Alcohol intake: never Substance use: never Gender identity (if verbalized by the patient): Female Spiritual care concerns: No Meds Home Medications and Allergies Home Medications Medication Instructions Recorded Confirmed Type bupropion HCl 150 mg 24 hr tablet, 150 mg PO QAM #90 tablet 11/16/19 06/01/20 Rx extended release fluticasone propionate 50 2 spray NASAL DAILY 11/16/19 06/01/20 History mcg/actuation nasal spray,suspension metformin 500 mg tablet 500 mg PO BID #180 tablet 11/16/19 06/01/20 Rx
[2020-06-01 07:48] VITALS: BP 111/59; PULSE 70; RESP 17; O2SAT 93
[2020-06-01 08:00] VITALS: BP 125/54; PULSE 70; RESP 17; O2SAT 97
== END 2020-06-01 08:28 | disposition home or self-care (01) ==
PROVIDERS: PCP Internal Medicine; Visit Provider Internal Medicine Gastroenterology
PROC: 0DJ08ZZ Inspection of Upper Intestinal Tract, Via Natural or Artificial Opening Endoscopic (ICD-10-PCS; CPT 43235; principal; 2020-06-01 07:30)
DX: D50.9 Iron deficiency anemia, unspecified (principal); Z87.11 Personal history of peptic ulcer disease; K21.9 Gastro-esophageal reflux disease without esophagitis; I10 Essential (primary) hypertension; E11.9 Type 2 diabetes mellitus without complications; Z79.4 Long term (current) use of insulin; E78.5 Hyperlipidemia, unspecified; I34.1 Nonrheumatic mitral (valve) prolapse; F41.9 Anxiety disorder, unspecified; F32.9 Major depressive disorder, single episode, unspecified; Z86.73 Personal history of transient ischemic attack (TIA), and cerebral infarction without residual deficits; Z87.891 Personal history of nicotine dependence; Z79.82 Long term (current) use of aspirin; Z79.899 Other long term (current) drug therapy; Z79.02 Long term (current) use of antithrombotics/antiplatelets; Z79.51 Long term (current) use of inhaled steroids
CPT/HCPCS: 43239; 87081; J2704; J7120

== ENCOUNTER 2020-07-22 16:03 | Emergency (ER) | payer MEDICARE, SELFPAY ==
--- NOTE | ~2020-07-22 | CT_ITS ---
EXAMINATION: CT abdomen pelvis w con DATE: 07/22/2020 17:15 INDICATION: Left lower quadrant abdominal pain. TECHNIQUE: Computed tomography (CT) of the abdomen and pelvis was performed with 100 mL Omnipaque-350 intravenous contrast. Automated exposure control and iterative reconstruction technique were employe d. The dose-length product was 363.25 mGy-cm. COMPARISON: CT dated 07/01/2019 FINDINGS: Lung bases are clear. Size is normal. No pericardial or pleural effusion. Small region of focal hepat ic steatosis along the ligamentum teres. Gallbladder, spleen, pancreas, right kidney and bilateral ad renal glands are normal. Couple left renal cysts the larger measuring 1 cm. Moderate amount of stool scattered throughout the colon. No abnormal bowel wall thickening or obstruction. Appendix is normal. Bladder is normal. Interval increase in size of a previously 7.7 x 7.9 x 7.5 cm mass in the pelvis c urrently measuring 11.1 x 8.8 x 8.6 cm. The mass abuts both the left ovary and the posterior margin o f the anteverted uterus, unclear whether this represents a pedunculated fibroid or ovarian mass. Smal l amount of ascites in the pelvis. There are few sacral Tarlov cysts. Moderate to severe lower lumbar facet osteoarthritis. IMPRESSION: 1. Increase in size of a now 11.1 x 8.8 x 8.6 cm pelvic mass, unclear whether originate from the uter us which would favor fibroid from the left ovary which could represent an ovarian neoplasm either zahra ign or malignant. Would recommend further evaluation with postcontrast MRI. 2. Nonspecific small amount of ascites in the pelvis. Reviewed, dictated and finalized at location A. IMPRESSION: 1. Increase in size of a now 11.1 x 8.8 x 8.6 cm pelvic mass, unclear whether o riginate from the uterus which would favor fibroid from the left ovary which co uld represent an ovarian neoplasm either benign or malignant. Would recommend f urther evaluation with postcontrast MRI. 2. Nonspecific small amount of ascites in the pelvis.
[2020-07-22 16:07] VITALS: BP 193/89; PULSE 82; RESP 16; TEMP 36.8; O2SAT 98
[2020-07-22 16:26] LABS: Basophils Percent Auto 0.4 % (0.2-1.2); Eosinophils Absolute Auto 0.1 K/mm3 (0-0.3); Hematocrit 36.4 % (37.0-47.0); Immature Granulocyte Absolute 0.02 K/mm3 (0.00-0.031); Immature Granulocyte Percent A 0.2 % (0-0.5); Lymphocytes Absolute Auto 1.47 K/mm3 (0.9-3.2); Lymphocytes Percent Auto 14.9 % (18.3-44.2); Mean Corpuscular Hemoglobin 29.5 pg (26-34); Mean Corpuscular Volume 89.4 fl (80-100); Mean Platelet Volume 9.5 fl (7.4-10.4); Monocytes Absolute Auto 0.8 K/mm3 (0.1-0.6); Monocytes Percent Auto 7.9 % (2.6-8.5); Neutrophils Absolute Auto 7.5 K/mm3 (1.3-6.7); Neutrophils Percent Auto 75.6 % (45.5-73.1); Platelet Count Result 311 k/mm3 (150-375); Red Blood Count 4.07 M/mm3 (4.2-5.4); Red Cell Distribution Width 14.3 % (11.5-14.5); White Blood Count 9.9 K/mm3 (4.5-10.0)
[2020-07-22 16:34] LABS: Add Urine Microscopic? YES; Appearance Urine Cloudy (Clear); Bacteria Urine Trace /hpf; Bilirubin Urine Negative (Negative); Color Urine Yellow (Yellow); Glucose Urine UA Negative (Negative); Ketones Urine Negative (Negative); Leukocyte Esterase Ur 1+ LEU/UL (Negative); Mucus Urine Rare /lpf; Nitrate Urine Negative (Negative); Protein Urine Negative (Negative); Specific Grav Ur 1.016 (1.001-1.035); Squamous Epithelial Cell Urine Few /hpf (Few); Urobilinogen Urine Negative mg/dL (<2.0)
[2020-07-22 16:35] LABS: Blood Urine Negative (Negative)
[2020-07-22 16:37] LABS: Alanine Aminotransferase 31 U/L (4-35); Albumin Level 4.2 g/dL (3.5-5.1); Alkaline Phosphatase 69 U/L (38-126); Anion Gap 11 mmol/L (8-16); Aspartate Amino Transferase 28 U/L (14-36); Bilirubin,Total 0.2 mg/dL (0.2-1.3); Blood Urea Nitrogen 15 mg/dL (7-17); Calcium 9.6 mg/dL (8.4-10.2); Carbon Dioxide 24 mmol/L (22-30); Chloride 106 mmol/L (98-107); Estimated CRCL calculation 52 ml/min; Estimated Glomerular Filt Rate > 60; Glucose 99 mg/dL (65-105); Lipase 78 U/L (23-300); Potassium 4.3 mmol/L (3.4-5.0); Sodium 141 mmol/L (137-145)
--- NOTE | 2020-07-22 17:04 | ED.ABDPAIN ---
HPI - Abdominal Pain General Chief Complaint: Abdominal Pain Stated Complaint: abd pain Time Seen by Provider: 07/22/20 16:05 Source: patient Mode of arrival: ambulatory Limitations: no limitations History of Present Illness HPI narrative: Patient is a 70-year-old female who presents with left lower quadrant pain that began today as an aching pain patient does not take anything for her symptoms denies similar occurrence in the past denies any fever chills nausea vomiting URI symptoms diarrhea rectal bleeding melena or urinary symptoms presents in no distress Related Data Home Medications Medication Instructions Recorded Confirmed fluticasone propionate 50 2 spray NASAL DAILY 11/16/19 06/01/20 mcg/actuation nasal spray,suspension methimazole 5 mg PO DAILY 03/20/20 06/01/20 aspirin 81 mg tablet,delayed 81 mg PO DAILY 04/05/20 06/01/20 release ergocalciferol (vitamin D2) 50,000 unit PO WEEKLY 05/24/20 06/01/20 melatonin 3 mg PO DAILY 05/24/20 06/01/20 Allergies Allergy/AdvReac Type Severity Reaction Status Date / Time No Known Allergies Allergy Verified 07/22/20 16:16 Review of Systems Review of Systems: All systems reviewed & are unremarkable except as noted in HPI and below PMFSH Past Medical History Medical History Adnexal mass (~06/2019) 8.1 centimeter hypoechoic mass in the left adnexa with differential diagnosis to include pedunculated fibroid or ovarian mass. Anxiety with depression Benign essential hypertension Bladder tumor (~08/2019) Status post TURBT per Dr. Herrera. Gastroesophageal reflux disease Hearing loss Hospital discharge follow-up Hyperlipidemia Hyperthyroidism Moderate mitral valve regurgitation Noted on [facility] in February 2016. Osteoporosis Right carotid bruit Carotid Doppler ultrasounds showed < 50% stenosis in bilateral internal carotid arteries in June 2019. Toxic nodular goiter Transient ischemic attack Type 2 diabetes mellitus Hemoglobin A1c was 6.1% in March 2019. Surgical History Surgical History Status post surgical removal and fulguration of bladder neoplasm (~08/2019) Social History Social History Social History: The patient lives in [place] with her spouse. They have 2 children. 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 She has smoked between 0.5 and 1 pack of cigarettes per day and quit in October 2019. She denies alcohol and illicit substance abuse. She designates her , Presley, as her surrogate decision maker and she wishes to be a full code. Smoking packs per day: 1 Smoking cigarettes per day: 20.0 Years smoked: 50 Smoking pack-years: 50.00 Smoking status: Former smoker Second hand tobacco smoke exposure: Yes Alcohol intake: never Substance use: never Gender identity (if verbalized by the patient): Female Spiritual care concerns: No Exam Narrative: Exam Narrative: GENERAL: Well-appearing, well-nourished, and in no acute distress. HEAD: Normocephalic, atraumatic. EYES: PERRLA and EOMI. ENT: Nares clear, no rhinorrhea or epistaxis. Mucous membranes moist. CHEST: Clear to auscultation. No respiratory distress. No wheezes rales or rhonchi HEART: Regular rate and rhythm. No murmur heard. Normal peripheral pulses. ABDOMEN: Soft, left lower quadrant tenderness to palpation no rebound or guarding, nondistended EXTREMITIES: Normal range of motion. No edema. SKIN: Warm, dry, no rash. NEURO: No focal deficits. Alert and oriented x3. PSYCH: Normal mood and affect. Course Course Emergency Course: Patient in the room aware of case findings treatment plan and diagnosis agreeing to follow with gynecology with pelvic mass is the likely etiology of her symptoms Consultations Consultation #1: Spoke with Dr. Slaughter who recommends in clinic follow-up Date: 07/22/20 Time: 18
[2020-07-22 17:49] VITALS: BP 146/68; PULSE 76; RESP 20; O2SAT 97
[2020-07-22] MEDS: KETOROLAC 15 MG/ML VIAL (*BKC) 10 MG IV PUSH (18:24)
[2020-07-22 18:26] VITALS: BP 151/55; PULSE 79; RESP 20; O2SAT 96
[2020-07-22 18:31] VITALS: BP 151/55; PULSE 79; RESP 20; O2SAT 100
== END 2020-07-22 18:32 | disposition home or self-care (01) ==
PROVIDERS: Emergency Medicine Emergency Medical Services; Emergency Provider Emergency Medicine; PCP Internal Medicine
DX: N94.9 Unspecified condition associated with female genital organs and menstrual cycle (principal); K21.9 Gastro-esophageal reflux disease without esophagitis; I10 Essential (primary) hypertension; E78.5 Hyperlipidemia, unspecified; E11.9 Type 2 diabetes mellitus without complications; M81.0 Age-related osteoporosis without current pathological fracture; E05.90 Thyrotoxicosis, unspecified without thyrotoxic crisis or storm; Z86.73 Personal history of transient ischemic attack (TIA), and cerebral infarction without residual deficits; F41.8 Other specified anxiety disorders; Z79.82 Long term (current) use of aspirin; Z79.84 Long term (current) use of oral hypoglycemic drugs; Z87.891 Personal history of nicotine dependence; Z85.51 Personal history of malignant neoplasm of bladder
CPT/HCPCS: 36415; 74177; 80053; 81001; 83690; 85025; 87086; 87088; 96374; 99284; J1885; Q9967

== ENCOUNTER 2020-07-26 08:23 | Outpatient (CLI) | payer MEDICARE, SELFPAY ==
--- NOTE | ~2020-07-26 | CT_ITS ---
EXAMINATION: CT abdomen pelvis w con DATE: 07/26/2020 09:27 INDICATION: Rebound abdominal tenderness. TECHNIQUE: Computed tomography (CT) of the abdomen and pelvis was performed with 100 mL Omnipaque-350 intravenous contrast. Automated exposure control and iterative reconstruction technique were employe d. The dose-length product was 345.75 mGy-cm. COMPARISON: 07/22/2020 FINDINGS: Lung bases are clear. Heart size is normal. No pericardial or pleural effusion. Liver, gallbladder, s pleen, pancreas, bilateral adrenal glands and right kidney are normal. Subcentimeter cyst at the lowe r pole of the left kidney. 2.2 cm fat attenuation intramural lipoma at the proximal descending colon. No bowel obstruction. Decompressed bladder is normal. There is a 9.1 cm diameter relatively homogene ous mass in the pelvis which appears to arise from the left adnexa. There is asymmetric less well-def ined and more heterogeneous increased density at the left adnexa which could represent either enlarge d edematous left ovary or potentially small amount of complex fluid surrounding the left ovary. The m ass exerts mass effect upon the anteverted uterus. Right adnexa is unremarkable. There is mild strand ing of the perirectal fat and small amount of fluid in the presacral space. No free intraperitoneal g as. Mild lumbar levocurvature with mild spondylosis. IMPRESSION: 1. 9.1 cm pelvic mass which appears to arise from the left adnexa. Differential includes hemorrhagic cyst, neoplasm either benign or malignant could not exclude abscess of indeterminate etiology though this is considered unlikely. The left ovary is either enlarged or surrounded by complex fluid and cou ld not exclude associated ovarian torsion. Recommend INTERVENTION SPECIALIST consultation and consider pelvic ultrasou nd for further evaluation. Dr. Pickett discussed these findings with Dr. Guerra at 9:42 AM. Reviewed, dictated and finalized at location A. IMPRESSION: 1. 9.1 cm pelvic mass which appears to arise from the left adnexa. Differential includes hemorrhagic cyst, neoplasm either benign or malignant could not exclu de abscess of indeterminate etiology though this is considered unlikely. The le ft ovary is either enlarged or surrounded by complex fluid and could not exclud e associated ovarian torsion. Recommend INTERVENTION SPECIALIST consultation and consider pelvic ultrasound for further evaluation. Dr. Pickett discussed these findings with Dr. Guerra at 9:42 AM.
--- NOTE | ~2020-07-26 | US_ITS ---
EXAMINATION: US pelvic complete w TV EXAM DATE: 07/26/2020 11:01 INDICATION: Pelvic pain for one week. TECHNIQUE: Pelvic transabdominal and transvaginal sonogram was performed. There are multiple graysca le and Doppler images available for interpretation. Comparison is made to prior examination from 05/17. FINDINGS: Uterus measures 6.1 x 1.3 x 3.3 cm, and is morphologically normal. Endometrial stripe ashanti sures 3 mm, within normal limits. There is no free pelvic fluid. Right adnexa: Difficult to identify the right ovary. Left adnexa: There is left adnexal region heterogeneous echogenicity mass measuring 9 cm, without def inite internal vascularity identified, however based on the internal echoes suspect this is most like ly solid. Differential diagnosis includes benign and malignant histologies. IMPRESSION: 1. Left ovarian 9 cm mass; recommend PEDIATRIC PHYSIATRIST consult for histologic correlation. Reviewed, dictated and finalized at location B.
--- NOTE | ~2020-07-26 | CT_ITS ---
EXAMINATION: CT brain wo/w con EXAM DATE: 07/26/2020 09:28 INDICATION: Headaches. TECHNIQUE: Spiral CT of the head was performed without contrast. Axial, coronal and sagittal images were reviewed. Patient was then injected with 100 cc Omnipaque 350 intravenous contrast and reimaged. Postcontrast axial, coronal, sagittal reformatted images reviewed. The dose-length product (DLP) fo r this examination was 1210.66 mGy-cm. The exposure was tailored according to patient size, and iter ative reconstruction (ASIR) was used as additional dose reduction technique. Comparison is made to pr ior examination from 03/20/2016. FINDINGS: There is no acute intraparenchymal hemorrhage. No evidence of intraparenchymal brain mass lesion. No evidence of acute infarction. Please note that initial head CT has limited sensitivity f or small or acute infarctions. 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 There is mild p eriventricular and subcortical hypodensity, nonspecific but probably related to small vessel ischemic disease. There is mild prominence of the sulci and ventricles related to cerebral atrophy. There is intracranial carotid arteriosclerosis. There are no extra-axial collections. There is no mass e ffect or midline shift. The orbits are unremarkable. Soft tissue is unremarkable. The visualized s inuses and mastoid air cells are well aerated. There are no areas of abnormal enhancement on the po stcontrast images. Sagittal, transverse, sigmoid sinuses are nonthrombosed. IMPRESSION: Mild age-related findings. Otherwise unremarkable pre and postcontrast head CT examinatio n. Reviewed, dictated and finalized at location B. IMPRESSION: Mild age-related findings. Otherwise unremarkable pre and postcontr ast head CT examination.
[2020-07-26 09:15] LABS: Basophils Percent Auto 0.2 % (0.2-1.2); Eosinophils Absolute Auto 0.1 K/mm3 (0-0.3); Eosinophils Percent Auto 0.5 % (0-4.4); Hematocrit 33.3 % (37.0-47.0); Immature Granulocyte Absolute 0.09 K/mm3 (0.00-0.031); Immature Granulocyte Percent A 0.5 % (0-0.5); Lymphocytes Absolute Auto 0.81 K/mm3 (0.9-3.2); Lymphocytes Percent Auto 4.9 % (18.3-44.2); Mean Corpuscular Hemoglobin 29.4 pg (26-34); Mean Platelet Volume 9.8 fl (7.4-10.4); Monocytes Absolute Auto 1.2 K/mm3 (0.1-0.6); Monocytes Percent Auto 7.4 % (2.6-8.5); Neutrophils Absolute Auto 14.2 K/mm3 (1.3-6.7); Neutrophils Percent Auto 86.5 % (45.5-73.1); Platelet Count Result 295 k/mm3 (150-375); Red Blood Count 3.74 M/mm3 (4.2-5.4); Red Cell Distribution Width 14.2 % (11.5-14.5); White Blood Count 16.4 K/mm3 (4.5-10.0)
[2020-07-26 09:33] LABS: Anion Gap 10 mmol/L (8-16); Blood Urea Nitrogen 18 mg/dL (7-17); Calcium 8.3 mg/dL (8.4-10.2); Carbon Dioxide 24 mmol/L (22-30); Chloride 101 mmol/L (98-107); Estimated Glomerular Filt Rate 55; Glucose 127 mg/dL (65-105); Potassium 4.2 mmol/L (3.4-5.0); Sodium 135 mmol/L (137-145)
== END 2020-07-26 08:24 | disposition home or self-care (01) ==
PROVIDERS: PCP Internal Medicine; Visit Provider Internal Medicine
DX: R51.9 Headache, unspecified (principal); Z79.899 Other long term (current) drug therapy; R10.829 Rebound abdominal tenderness, unspecified site; R14.0 Abdominal distension (gaseous); Z86.73 Personal history of transient ischemic attack (TIA), and cerebral infarction without residual deficits; N83.8 Other noninflammatory disorders of ovary, fallopian tube and broad ligament; R10.32 Left lower quadrant pain
CPT/HCPCS: 36415; 70470; 74177; 76830; 76856; 80048; 85025; Q9967

== ENCOUNTER 2020-10-24 13:37 | Outpatient (CLI) | payer MEDICARE, SELFPAY ==
--- NOTE | ~2020-10-24 | XR_ITS ---
XR hand LT 2V DATE: 10/24/2020 14:05 INDICATION: Fall. Injury, particularly at third finger. TECHNIQUE: AP and lateral views COMPARISON: None FINDINGS: There is complete posterior dislocation of the proximal interphalangeal joint on the third digit, with an anteriorly displaced cortical avulsion fracture of the anterior base of the middle pha lanx. There is soft tissue swelling of the third digit. No other fracture or dislocation. No periosteal reaction or bone destruction, erosive change or chond rocalcinosis. There is osteoarthritic change at the triscaphe joint. IMPRESSION: Posterior dislocation at the proximal interphalangeal joint of the third digit with anter iorly displaced cortical avulsion fracture of the base of the middle phalanx Reviewed, dictated and finalized at location B. BILITATION TEAM LEAD IMPRESSION: Posterior dislocation at the proximal interphalangeal joint of the third digit with anteriorly displaced cortical avulsion fracture of the base of the middle phalanx
== END 2020-10-24 13:38 | disposition home or self-care (01) ==
PROVIDERS: PCP Internal Medicine; Visit Provider Internal Medicine
DX: M79.645 Pain in left finger(s) (principal); S62.623A Displaced fracture of middle phalanx of left middle finger, initial encounter for closed fracture
CPT/HCPCS: 73120

== ENCOUNTER 2020-10-26 13:42 | Outpatient (CLI) | payer MEDICARE, SELFPAY ==
--- NOTE | ~2020-10-26 | XR_ITS ---
XR finger 3rd LT min 2V DATE: 10/26/2020 14:02 INDICATION: Post reduction of dorsal dislocation TECHNIQUE: 4 views COMPARISON: 10/24/2020 left hand FINDINGS: There is a dorsal splint of the third digit. There is reduction of the posterior dislocation of the proximal interphalangeal joint. Small cortical avulsion fracture is noted at the anterior aspect of the base of the middle phalanx. IMPRESSION: Reduction of posterior dislocation at proximal interphalangeal joint, splinted Small anteriorly displaced cortical avulsion fracture from the anterior base of the middle phalanx Reviewed, dictated and finalized at location B. UNT PROCESSOR IMPRESSION: Reduction of posterior dislocation at proximal interphalangeal join t, splinted Small anteriorly displaced cortical avulsion fracture from the anterior base of the middle phalanx
== END 2020-10-26 13:43 | disposition home or self-care (01) ==
PROVIDERS: PCP Internal Medicine; Visit Provider Plastic Surgery
DX: S63.283A Dislocation of proximal interphalangeal joint of left middle finger, initial encounter (principal); Z98.890 Other specified postprocedural states
CPT/HCPCS: 73140

== ENCOUNTER 2020-11-22 14:18 | Outpatient (CLI) | payer MEDICARE, SELFPAY ==
--- NOTE | ~2020-11-22 | US_ITS ---
EXAMINATION: US pelvic complete w TV DATE: 11/22/2020 15:50 INDICATION: Left adnexal mass Comparison:Ultrasound dated 07/26/2020 and 07/12/2019 TECHNIQUE: Multiple transabdominal and endovaginal sonographic images of the pelvis performed. FINDINGS: The uterus measures 5.7 x 2.5 x 2.5 cm. The endometrial complex measures 4 mm. There is a l eft adnexal mass which abuts the uterus measuring 8.2 x 7.4 x 5.9 cm. This mass is difficult to disti nguish from the left ovary. The right ovary is not visualized. No free fluid in the pelvis. IMPRESSION: 1. Solid left adnexal mass measuring up to 8.2 cm. This mass is unchanged dating back to 07/12/2019 al lowing for differences of technique. Differential diagnosis includes pedunculated fibroid and ovarian mass including neoplasm. Given the lack of interval change benign entities are more favored. Conside r correlation with MRI. Reviewed, dictated and finalized at location A. DENTIAL LEASING AGENT IMPRESSION: 1. Solid left adnexal mass measuring up to 8.2 cm. This mass is unchanged datin g back to 07/12/2019 allowing for differences of technique. Differential diagnos is includes pedunculated fibroid and ovarian mass including neoplasm. Given the lack of interval change benign entities are more favored. Consider correlation with MRI.
== END 2020-11-22 14:19 | disposition home or self-care (01) ==
PROVIDERS: PCP Internal Medicine; Visit Provider Obstetrics & Gynecology Gynecology
DX: R19.00 Intra-abdominal and pelvic swelling, mass and lump, unspecified site (principal); R93.89 Abnormal findings on diagnostic imaging of other specified body structures
CPT/HCPCS: 76830; 76856

== ENCOUNTER 2021-05-27 12:38 | Outpatient (CLI) | payer MEDICARE, SELFPAY ==
--- NOTE | ~2021-05-27 | US_ITS ---
EXAMINATION: US pelvic complete w TV DATE: 05/27/2021 13:15 INDICATION: Left-sided uterine fibroid TECHNIQUE: Multiple transabdominal and endovaginal sonographic images of the pelvis were obtained. COMPARISON: Ultrasound dated 11/22/2020 FINDINGS: The uterus measures 7.0 x 2.3 x 3.4 cm. The endometrial complex measures 4-5 mm in thickness. There is a 6.7 x 6.4 x 7.5 cm left adnexal mass. The right and left ovaries were unable to be definitively identified. There is no free fluid in the pelvis. IMPRESSION: 1. No significant interval change in a 7.5 x 6.7 x 6.4 cm left adnexal mass. Differential would inclu de a pedunculated uterine fibroid or left adnexal mass which could be either benign or malignant. Cou ld consider further evaluation with multiphase pre and postcontrast pelvic MRI which might more clear ly identify whether the mass is of uterine or ovarian origin. Reviewed, dictated and finalized at location A. IMPRESSION: 1. No significant interval change in a 7.5 x 6.7 x 6.4 cm left adnexal mass. Di fferential would include a pedunculated uterine fibroid or left adnexal mass wh ich could be either benign or malignant. Could consider further evaluation with multiphase pre and postcontrast pelvic MRI which might more clearly identify w hether the mass is of uterine or ovarian origin.
== END 2021-05-27 12:39 | disposition home or self-care (01) ==
LOC: ANHIMG 12:39
PROVIDERS: PCP Internal Medicine; Visit Provider Obstetrics & Gynecology Gynecology
DX: D25.9 Leiomyoma of uterus, unspecified (principal)
CPT/HCPCS: 76830; 76856

== ENCOUNTER 2021-06-20 08:15 | Outpatient (CLI) | payer MEDICARE, SELFPAY ==
--- NOTE | ~2021-06-20 | US_ITS ---
EXAMINATION: US carotid duplex BI DATE: 06/20/2021 08:45 INDICATION: Right carotid bruit. TECHNIQUE: Grayscale, color Doppler, and pulsed Doppler images of the cervical carotid arteries were obtained. The degree of vessel stenosis is placed in one of the following categories: normal, <50%, 5 0-69%, >=70% but less than near-occlusion, near-occlusion, or total occlusion. Note that percent sten osis relative to normal distal artery lumen diameter is indirectly measured from velocity measurement s as described by Willy, et al. Radiology 2003; 229:340-346. COMPARISON: Ultrasound dated 04/08/2019 FINDINGS: RIGHT: The right common carotid artery (CCA) peak systolic velocity (PSV) is 106 cm/s. The right internal ca rotid artery (ICA) PSV is 108 cm/s. The right ICA end-diastolic velocity (EDV) is 35 cm/s. The right ICA/CCA PSV ratio is 1.0. Grayscale and color Doppler images yield an estimate of <50% diameter reduc tion from plaque in the ICA. The external carotid artery (ECA) PSV is 106 cm/s. There is antegrade fl ow in the right vertebral artery. LEFT: The left CCA PSV is 116 cm/s. The left ICA PSV is 106 cm/s. The left ICA EDV is 37 cm/s. The left ICA /CCA PSV ratio is 0.9. Grayscale and color Doppler images yield an estimate of <50% diameter reductio n from plaque in the ICA. The ECA PSV is 124 cm/s. There is antegrade flow in the left vertebral roberto ry. IMPRESSION: 1. <50% stenosis in the right internal carotid artery. 2. <50% stenosis in the left internal carotid artery. Reviewed, dictated and finalized at location A.
--- NOTE | ~2021-06-20 | CT_ITS ---
EXAMINATION: CT lung screening DATE: 06/20/2021 08:44 INDICATION: Z87.891 - Personal history of nicotine dependence TECHNIQUE: Computed tomography (CT) of the chest was performed without intravenous contrast. Addition al 3D reconstructions utilizing coronal maximum intensity projection (MIP) were performed. Automated exposure control and iterative reconstruction technique were employed. The dose-length product was 57 .23 mGy-cm. COMPARISON: None FINDINGS: Mild paraseptal emphysema and associated mild linear pleural parenchymal scarring at the bilateral up per lobes. No suspicious pulmonary nodules, pneumonia, pulmonary edema or pleural effusion. Heart siz e is normal. Minimal atherosclerotic coronary artery calcification. Small amount of aortic valve calc ific location. No pericardial effusion. Thoracic aorta is normal in caliber with additional and moder ate amount of nonhemodynamically significant atherosclerotic calcification. No pathologically enlarge d thoracic lymphadenopathy. Visualized upper abdomen is unremarkable. Mild upper thoracic dextrocurva ture with mild to moderate thoracic spondylosis. IMPRESSION: 1. Lung-RADS category 2: Benign appearance or behavior. Continue annual screening with noncontrast lo w-dose chest CT in 12 months. 2. Mild bilateral upper lobe paraseptal emphysema. Reviewed, dictated and finalized at location A. IMPRESSION: 1. Lung-RADS category 2: Benign appearance or behavior. Continue annual screeni ng with noncontrast low-dose chest CT in 12 months. 2. Mild bilateral upper lobe paraseptal emphysema.
== END 2021-06-20 08:16 | disposition home or self-care (01) ==
LOC: ANHIMG 08:17
PROVIDERS: PCP Internal Medicine; Visit Provider Internal Medicine
DX: Z12.2 Encounter for screening for malignant neoplasm of respiratory organs (principal); Z87.891 Personal history of nicotine dependence; R09.89 Other specified symptoms and signs involving the circulatory and respiratory systems; Z86.73 Personal history of transient ischemic attack (TIA), and cerebral infarction without residual deficits; J43.9 Emphysema, unspecified; I65.23 Occlusion and stenosis of bilateral carotid arteries
CPT/HCPCS: 71271; 93880

== ENCOUNTER 2021-06-24 04:31 | Emergency (ER) | payer MEDICARE, SELFPAY ==
[2021-06-24 04:34] VITALS: BP 195/74; PULSE 86; RESP 18; TEMP 36.1; O2SAT 100
--- NOTE | 2021-06-24 04:50 | PC.NURSE ---
nasal clamp applied by this RN.
[2021-06-24] MEDS: OXYMETAZOLINE HCL 0.05% NAS 15 ML BTL (*BKC) 1 SPRAY (05:10)
--- NOTE | 2021-06-24 05:18 | PC.NURSE ---
Rhino Rocket to Right nares placed by AARON Ramirez.
--- NOTE | 2021-06-24 05:20 | ED.EPISTAXIS ---
HPI - Epistaxis General Chief complaint: Epistaxis Stated complaint: Nose bleed Time Seen by Provider: 06/24/21 04:38 Source: RN notes reviewed History of Present Illness HPI Narrative: Patient presents emergency department from home for epistaxis. Patient states symptoms again approximately 230 this morning when she awoke from sleep states has been having bleeding out of the right nare. Patient states that she is on a baby aspirin a day she denies any direct trauma or injury she denies any fevers or chills shortness of breath or any other symptoms Related Data Home Medications Medication Instructions Recorded Confirmed aspirin 81 mg tablet,delayed 81 mg PO DAILY 04/05/20 06/10/21 release melatonin 3 mg PO DAILY 05/24/20 06/10/21 ergocalciferol (vitamin D2) 1,250 50,000 unit PO .COMPLEX 08/16/20 06/10/21 mcg (50,000 unit) capsule fluticasone propionate 50 1 spray INTRANASAL DAILY PRN ml 01/10/21 06/10/21 mcg/actuation nasal spray,suspension diphenhydramine 25 1 tablet PO QHS PRN 01/18/21 06/10/21 mg-acetaminophen 500 mg tablet Allergies Allergy/AdvReac Type Severity Reaction Status Date / Time No Known Allergies Allergy Verified 06/24/21 04:36 Review of Systems Review of Systems: Gen.: Denies fevers or chills HEENT: See HPI Respiratory: Denies shortness of breath Neuro: Denies numbness, tingling, weakness Skin: Denies rash Endo: Reports diabetes mellitus [facility] Past Medical History Medical History Adnexal mass (~06/2019) 8.1 centimeter hypoechoic mass in the left adnexa with differential diagnosis to include pedunculated fibroid or ovarian mass. Anxiety with depression Benign essential hypertension Bladder tumor (~08/2019) Status post TURBT per Dr. Herrera. Bleeding from the nose BMI 25.0-25.9,adult Breast cancer screening Encounter for routine adult health examination without abnormal findings Gastroesophageal reflux disease Hearing loss Hospital discharge follow-up Hyperlipidemia Hyperthyroidism LLQ abdominal pain Microscopic hematuria Moderate mitral valve regurgitation Noted on [facility] in February 2016. Osteoporosis Pain in finger of left hand Right carotid bruit Carotid Doppler ultrasounds showed < 50% stenosis in bilateral internal carotid arteries in June 2019. Toxic nodular goiter Transient ischemic attack Type 2 diabetes mellitus Hemoglobin A1c was 6.1% in March 2019. Surgical History Surgical History Status post surgical removal and fulguration of bladder neoplasm (~08/2019) Family History Family History Mother Family history of osteoporosis Family history of Parkinson's disease Family history of primary malignant neoplasm of liver Family history of malignant neoplasm of breast in first degree relative Father Family history of heart disease in male family member before age 55 Family history of cardiovascular disease Family history of chronic obstructive pulmonary disease Social History Social History Social History: The patient lives in [place] with her spouse. They have 2 children. 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 She has smoked between 0.5 and 1 pack of cigarettes per day and quit in October 2019. She denies alcohol and illicit substance abuse. She designates her , Presley, as her surrogate decision maker and she wishes to be a full code. Smoking packs per day: 1 Smoking cigarettes per day: 20.0 Years smoked: 50 Smoking pack-years: 50.00 Smoking status: Former smoker Second hand tobacco smoke exposure: Yes Alcohol intake: never Substance use: never Gender identity (if verbalized by the patient): Female Spiritual care concerns: No Exam Narrative: APPEARANCE: No acute distress, nontoxic, resting in bed
== END 2021-06-24 06:07 | disposition home or self-care (01) ==
PROVIDERS: Emergency Provider Emergency Medicine; PCP Internal Medicine
DX: R04.0 Epistaxis (principal); Z87.891 Personal history of nicotine dependence; F41.9 Anxiety disorder, unspecified; F32.9 Major depressive disorder, single episode, unspecified; K21.9 Gastro-esophageal reflux disease without esophagitis; E78.5 Hyperlipidemia, unspecified; E11.9 Type 2 diabetes mellitus without complications; E05.90 Thyrotoxicosis, unspecified without thyrotoxic crisis or storm; I10 Essential (primary) hypertension
CPT/HCPCS: 30901; 99283; A9270

== ENCOUNTER 2021-06-24 11:00 | Emergency (ER) | payer MEDICARE, SELFPAY ==
[2021-06-24 11:15] VITALS: BP 169/92; PULSE 81; RESP 16; TEMP 36.7; O2SAT 99
--- NOTE | 2021-06-24 12:57 | ED.EPISTAXIS ---
HPI - Epistaxis General Chief complaint: Epistaxis Stated complaint: Nose is bleeding Time Seen by Provider: 06/24/21 12:42 Source: patient Mode of arrival: ambulatory Limitations: no limitations History of Present Illness HPI Narrative: This is a 71-year-old female that presents the emergency department for epistaxis. She was seen in the ED for this this morning and has a Rhino Rocket in place. Reports she has had continued oozing from the area. She has seen Dr. Ham Lynne for a nosebleed in the past and plans to follow-up with him. She is currently on cephalexin. She takes a baby aspirin and Plavix daily. Denies fever. Related Data Home Medications Medication Instructions Recorded Confirmed aspirin 81 mg tablet,delayed 81 mg PO DAILY 04/05/20 06/10/21 release melatonin 3 mg PO DAILY 05/24/20 06/10/21 ergocalciferol (vitamin D2) 1,250 50,000 unit PO .COMPLEX 08/16/20 06/10/21 mcg (50,000 unit) capsule fluticasone propionate 50 1 spray INTRANASAL DAILY PRN ml 01/10/21 06/10/21 mcg/actuation nasal spray,suspension diphenhydramine 25 1 tablet PO QHS PRN 01/18/21 06/10/21 mg-acetaminophen 500 mg tablet Allergies Allergy/AdvReac Type Severity Reaction Status Date / Time No Known Allergies Allergy Verified 06/24/21 12:11 Review of Systems Review of Systems: CONSTITUTIONAL: Denies fever, ENT: Reports epistaxis All systems reviewed & are unremarkable except as noted in HPI and below PMFSH Past Medical History Medical History Adnexal mass (~06/2019) 8.1 centimeter hypoechoic mass in the left adnexa with differential diagnosis to include pedunculated fibroid or ovarian mass. Anxiety with depression Benign essential hypertension Bladder tumor (~08/2019) Status post TURBT per Dr. Herrera. Bleeding from the nose BMI 25.0-25.9,adult Breast cancer screening Encounter for routine adult health examination without abnormal findings Gastroesophageal reflux disease Hearing loss Hospital discharge follow-up Hyperlipidemia Hyperthyroidism LLQ abdominal pain Microscopic hematuria Moderate mitral valve regurgitation Noted on [facility] in February 2016. Osteoporosis Pain in finger of left hand Right carotid bruit Carotid Doppler ultrasounds showed < 50% stenosis in bilateral internal carotid arteries in June 2019. Toxic nodular goiter Transient ischemic attack Type 2 diabetes mellitus Hemoglobin A1c was 6.1% in March 2019. Surgical History Surgical History Status post surgical removal and fulguration of bladder neoplasm (~08/2019) Family History Family History Mother Family history of osteoporosis Family history of Parkinson's disease Family history of primary malignant neoplasm of liver Family history of malignant neoplasm of breast in first degree relative Father Family history of heart disease in male family member before age 55 Family history of cardiovascular disease Family history of chronic obstructive pulmonary disease Social History Social History Social History: The patient lives in [place] with her spouse. They have 2 children. 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 She has smoked between 0.5 and 1 pack of cigarettes per day and quit in October 2019. She denies alcohol and illicit substance abuse. She designates her , Presley, as her surrogate decision maker and she wishes to be a full code. Smoking packs per day: 1 Smoking cigarettes per day: 20.0 Years smoked: 50 Smoking pack-years: 50.00 Smoking status: Former smoker Second hand tobacco smoke exposure: Yes Alcohol intake: never Substance use: never Gender identity (if verbalized by the patient): Female Spiritual care concerns: No Exam Narrative: GENERAL: Well-appearing, well-
[2021-06-24 13:32] VITALS: BP 178/81; PULSE 74; RESP 18; TEMP 36.6; O2SAT 98
== END 2021-06-24 13:36 | disposition home or self-care (01) ==
PROVIDERS: Emergency Provider Emergency Medicine; PCP Internal Medicine
DX: R04.0 Epistaxis (principal); Z79.82 Long term (current) use of aspirin; Z79.01 Long term (current) use of anticoagulants; F41.9 Anxiety disorder, unspecified; F32.9 Major depressive disorder, single episode, unspecified; I10 Essential (primary) hypertension; K21.9 Gastro-esophageal reflux disease without esophagitis; E78.5 Hyperlipidemia, unspecified; E05.90 Thyrotoxicosis, unspecified without thyrotoxic crisis or storm; E11.9 Type 2 diabetes mellitus without complications
CPT/HCPCS: 30999; 30901; 99283; A9270

== ENCOUNTER 2021-10-15 10:18 | Outpatient (CLI) | payer MEDICARE, SELFPAY ==
[2021-10-15 10:44] LABS: Basophils Percent Auto 0.6 % (0.2-1.2); Eosinophils Absolute Auto 0.1 K/mm3 (0-0.3); Eosinophils Percent Auto 2.5 % (0-4.4); Hematocrit 37.5 % (37.0-47.0); Hemoglobin 12.5 g/dL (12.0-15.0); Immature Granulocyte Absolute 0.01 K/mm3 (0.00-0.031); Immature Granulocyte Percent A 0.2 % (0-0.5); Lymphocytes Absolute Auto 1.17 K/mm3 (0.9-3.2); Lymphocytes Percent Auto 24.3 % (18.3-44.2); Mean Corpuscular HGB Conc 33.3 g/dl (32-36); Mean Corpuscular Hemoglobin 30.9 pg (26-34); Mean Corpuscular Volume 92.6 fl (80-100); Mean Platelet Volume 9.9 fl (7.4-10.4); Monocytes Absolute Auto 0.4 K/mm3 (0.1-0.6); Monocytes Percent Auto 8.5 % (2.6-8.5); Neutrophils Absolute Auto 3.1 K/mm3 (1.3-6.7); Neutrophils Percent Auto 63.9 % (45.5-73.1); Platelet Count Result 229 k/mm3 (150-375); Red Blood Count 4.05 M/mm3 (4.2-5.4); Red Cell Distribution Width 13.4 % (11.5-14.5); White Blood Count 4.8 K/mm3 (4.5-10.0)
[2021-10-15 10:53] LABS: Hemoglobin A1C 5.4 % (<5.7)
[2021-10-15 10:55] LABS: Alanine Aminotransferase 30 U/L (4-35); Alkaline Phosphatase 62 U/L (38-126); Anion Gap 8 mmol/L (8-16); Aspartate Amino Transferase 27 U/L (14-36); Bilirubin,Total 0.5 mg/dL (0.2-1.3); Blood Urea Nitrogen 17 mg/dL (7-17); Calcium 8.7 mg/dL (8.4-10.2); Carbon Dioxide 24 mmol/L (22-30); Chloride 105 mmol/L (98-107); Cholesterol 129 mg/dL (0-200); Estimated Glomerular Filt Rate > 60; Glucose 111 mg/dL (65-110); HDL Direct 57 mg/dL; Potassium 4.4 mmol/L (3.4-5.0); Sodium 137 mmol/L (137-145); Triglycerides 97 mg/dL (<150)
[2021-10-15 11:05] LABS: LDL Cholesterol Direct 52 mg/dL
[2021-10-15 11:07] LABS: Iron 79 ug/dL (37-170)
[2021-10-15 11:16] LABS: Percent Iron Saturation 28 % (20-50)
== END 2021-10-15 10:19 | disposition home or self-care (01) ==
PROVIDERS: PCP Internal Medicine; Visit Provider Internal Medicine
DX: D50.9 Iron deficiency anemia, unspecified (principal); I10 Essential (primary) hypertension; E78.2 Mixed hyperlipidemia; E11.9 Type 2 diabetes mellitus without complications
CPT/HCPCS: 36415; 80053; 80061; 82728; 83036; 83540; 83550; 85025

== ENCOUNTER 2022-06-17 14:44 | Outpatient (CLI) | payer MEDICARE, SELFPAY ==
--- NOTE | ~2022-06-17 | US_ITS ---
EXAMINATION: US pelvic complete w TV DATE: 06/17/2022 16:07 INDICATION: FOLLOW UP FIBROID TECHNIQUE: Multiple transabdominal and endovaginal sonographic images of the pelvis were obtained. COMPARISON: 05/27/2021 FINDINGS: Uterus: 6.4 x 4.3 x 2.8 cm. Endometrial complex measures 16 mm. 7.2 cm pedunculated fibroid extending into the left adnexa. Right Ovary: Not visualized. Left Ovary: Not visualized . There is no free fluid in the pelvis. IMPRESSION: Stable pedunculated fibroid. Reviewed, dictated and finalized at location K.
== END 2022-06-17 14:45 | disposition home or self-care (01) ==
PROVIDERS: PCP Internal Medicine; Visit Provider Obstetrics & Gynecology Gynecology
DX: D25.9 Leiomyoma of uterus, unspecified (principal)
CPT/HCPCS: 76830; 76856

== ENCOUNTER 2022-08-12 09:44 | Outpatient (CLI) | payer MEDICARE, SELFPAY ==
[2022-08-12 10:38] LABS: Hematocrit 41.4 % (37.0-47.0); Hemoglobin 13.7 g/dL (12.0-15.0)
== END 2022-08-12 09:45 | disposition home or self-care (01) ==
LOC: ANHSURGERY 09:44
PROVIDERS: Anesthesiology; PCP Internal Medicine; Visit Provider Obstetrics & Gynecology Gynecology
DX: Z01.818 Encounter for other preprocedural examination (principal); D50.9 Iron deficiency anemia, unspecified
CPT/HCPCS: 36415; 85014; 85018

== ENCOUNTER 2022-08-18 01:00 | Day surgery (SDC) | payer MEDICARE, SELFPAY ==
[2022-08-05 15:37] VITALS: BMI 25.7
--- NOTE | 2022-08-05 15:54 | PC.NURSE ---
Report to the Outpatient Waiting Room, entrance under the green pavilion located off [facility], at time __8:00AM on date _08/18/22 . Planned Procedure Time: __10:00AM . Time changes happen often and if your time is changed the preop area will call you the afternoon before. - You and your visitor will be asked to self-screen and do not enter if you have any COVID symptoms. - We encourage only one visitor and NO visitors under age 16 are allowed at this time. Your visitor will receive communication by the phone number that is given day of service. - The patient visitor is requested to social distance or may leave the building when not with patient due to restrictions. - A mask is required within the hospital. Patients may have clear liquids (water, carbonated beverages, clear teas, apple juice) until 3 hours prior to surgery with a maximum of 20 ounces. - No food from midnight until time of surgery Take the following medications with a SIP of water the morning of surgery: __NEBIVOLOL Medications to discontinue per physician HOLD ASPIRIN & CLOPIDOGREL PER DR KUHN(PATIENT CALLING OFFICE TOMORROW). HOLD VITAMINS/SUPPLEMENTS 3 DAYS PRE-OP- LAST DOSE 08/15/22 Please no make-up, nail tongan, hairspray, perfume, deodorant, or body powder the day of surgery. No jewelry (including any body piercings) or valuables the day of surgery, leave them at home. Please take a shower or bath the night before, or the morning of, surgery with an antibacterial soap. Wear comfortable, loose fitting clothing. Children are encouraged to wear pajamas. - Jewelry must be removed prior to entering the operating room. Rings and piercings that are not removed may be cut off. - The hospital will not accept responsibility for valuables. - Please leave all valuables, including medications, at home the day of surgery. If you are going home after surgery, a licensed regional driver must drive you home. - NO public transportation without another adult. - We recommend that an adult stay with you for 24 hours following discharge. - We also recommend that you do not drive, make important decision, drink alcoholic beverages, or take any drugs that were not prescribed by your health care provider for at least 24 hours after your discharge time. Follow any additional instructions given to you from your surgeon. If you or anyone in your household have experienced Covid symptoms in the past week, please notify your surgeon or the nurse liaison at the phone number below for possible testing. Telephone instructions given to ___PATIENT and asked if any additional questions and then verbalized understanding. Patient advised to call surgeon office or pre surgery nurse liaison [phone] if any additional questions.
--- NOTE | 2022-08-18 07:19 | WPDHPUPDATE1 ---
History and Physical Update Update Date/Time: 08/18/22 07:19 History and Physical has been reviewed, including an updated exam of the patient. There are NO changes in the patient's condition. Risks, benefits, and alternatives have been discussed and questions answered. Patient agrees to proceed with procedure.
--- NOTE | 2022-08-18 07:19 | PM.HPGS ---
History of Present Illness History of Present Illness Consent: Risks, benefits, and alternatives have been discussed and questions answered. Patient agrees to proceed with procedure. Chief complaint: Thickened Endometrium Narrative: Mojgan Gold is a 72 year old female with thickened endometrium by ultrasound at 16mm. The patient's uterus measures 6x 4x2 cm. There is a known pedunculated fibroid on the left measuring 7cm. The patient denies vaginal bleeding. It was recommended to proceed with D&C hysteroscopy to further evaluate. Risks infection, bleeding, perforation, and possible pathology are reviewed. Patient voices understanding and agrees to proceed. Review of Systems ENT: Reports other ( hayfever) Genitourinary: Genitourinary: Reports vaginal dryness Musculoskeletal: Musculoskeletal: Reports back pain PMFSH Past Medical History Medical History (Updated 08/18/22 @ 07:25 by Aditi Bhardwaj MD) Abdominal or pelvic swelling, mass, or lump, left lower quadrant Adnexal mass (~06/2019) 8.1 centimeter hypoechoic mass in the left adnexa with differential diagnosis to include pedunculated fibroid or ovarian mass. Anxiety with depression Benign essential hypertension Bilateral carotid artery stenosis Bladder tumor (~08/2019) Status post TURBT per Dr. Herrera. Fibroids Gastroesophageal reflux disease Hearing loss Hyperlipidemia Hyperthyroidism Moderate mitral valve regurgitation Noted on [facility] in February 2016. Osteoporosis Right carotid bruit Carotid Doppler ultrasounds showed < 50% stenosis in bilateral internal carotid arteries in June 2019. Transient ischemic attack Type 2 diabetes mellitus Hemoglobin A1c was 6.1% in March 2019. Surgical History Surgical History (Updated 08/18/22 @ 07:23 by Aditi Bhardwaj MD) History of bilateral tubal ligation History of laparoscopy Status post surgical removal and fulguration of bladder neoplasm (~08/2019) Family History Family History Mother Family history of osteoporosis Family history of Parkinson's disease Family history of primary malignant neoplasm of liver Family history of malignant neoplasm of breast in first degree relative Father Family history of heart disease in male family member before age 55 Family history of cardiovascular disease Family history of chronic obstructive pulmonary disease Social History Social History Social History: The patient lives in [place] with her spouse. They have 2 children. 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 She has smoked between 0.5 and 1 pack of cigarettes per day and quit in October 2019. She denies alcohol and illicit substance abuse. She designates her , Presley, as her surrogate decision maker and she wishes to be a full code. Smoking packs per day: 1 Smoking cigarettes per day: 20.0 Years smoked: 51 Smoking pack-years: 51.00 Smoking status: Former smoker Tobacco type: cigarettes Second hand tobacco smoke exposure: Yes Smoking end date: 10/19/19 Alcohol intake: never Substance use: never Living arrangements: with family Additional living arrangements comments: [facility] Gender identity (if verbalized by the patient): Female Spiritual care concerns: No Meds Home Medications and Allergies Home Medications Medication Instructions Recorded Confirmed Type aspirin 81 mg tablet,delayed 81 mg PO DAILY 04/05/20 08/05/22 History release (Enteric Coated Aspirin) ergocalciferol (vitamin D2) 1,250 50,000 unit PO .COMPLEX 08/16/20 08/05/22 History mcg (50,000 unit) capsule fluticasone propionate 50 1 spray intranasal DAILY PRN 01/10/21 08/05/22 History mcg/actuation nasal Congestion spray,suspension diphenhydramine 25 1 tablet PO QHS PRN Insomnia 01/18/21 08/05/22 History mg-acetaminophen 500 mg tablet (Tylenol PM Extra Strength) george
[2022-08-18 08:06] VITALS: BP 163/55; PULSE 73; RESP 16; TEMP 37.1; O2SAT 96
[2022-08-18] MEDS: ACETAMINOPHEN 500 MG TABLET 1000 MG PO (08:27)
[2022-08-18] MEDS: LACTATED RINGERS 1,000 ML 30 ML IV CONT (08:38)
[2022-08-18 08:42] LABS: Glucose Point of Care 109 mg/dl (65-105)
--- NOTE | 2022-08-18 09:15 | WPDANESEPPF ---
Anes - Initial Pre Proc Eval Procedure: Operation Date: 08/18/22 10:00 Proposed Procedures p Hysteroscopy with Dilation and Curettage - Aditi Bhardwaj MD Date/Time: 08/18/22 09:15 Surgeon: Aditi Bhardwaj MD Pre Op Diagnosis: Thickened Endometrium Patient Data Age: 72 Gender: F Height: 1.59 m Weight: 66.2 kg Last Vital Signs Temp 37.1 C 08/18/22 08:06 Pulse 73 08/18/22 08:06 Resp 16 08/18/22 08:06 BP 163/55 H 08/18/22 08:06 Pulse Ox 96 08/18/22 08:06 O2 Del Method Room Air 08/18/22 08:06 Allergies Allergy/AdvReac Type Severity Reaction Status Date / Time No Known Allergies Allergy Verified 08/18/22 08:22 Home Medications Medication Instructions Recorded Confirmed Type aspirin 81 mg tablet,delayed 81 mg PO DAILY 04/05/20 08/18/22 History release (Enteric Coated Aspirin) ergocalciferol (vitamin D2) 1,250 50,000 unit PO .COMPLEX 08/16/20 08/18/22 History mcg (50,000 unit) capsule fluticasone propionate 50 1 spray intranasal DAILY PRN 01/10/21 08/05/22 History mcg/actuation nasal Congestion spray,suspension diphenhydramine 25 1 tablet PO QHS PRN Insomnia 01/18/21 08/18/22 History mg-acetaminophen 500 mg tablet (Tylenol PM Extra Strength) atorvastatin 40 mg tablet 40 mg PO HS 08/05/22 08/18/22 History bupropion HCl 150 mg 24 hr tablet, 150 mg PO HS 08/05/22 08/18/22 History extended release clopidogrel 75 mg tablet 75 mg PO QAM 08/05/22 08/18/22 History ferrous sulfate 325 mg (65 mg 325 mg PO BID 08/05/22 08/18/22 History iron) tablet,delayed release losartan 50 mg tablet 50 mg PO QAM 08/05/22 08/05/22 History melatonin 5 mg tablet 5 mg PO HS PRN Insomnia 08/05/22 08/18/22 History metformin 500 mg tablet 500 mg PO BID 08/05/22 08/18/22 History pantoprazole 40 mg tablet,delayed 40 mg PO QAM 08/05/22 08/18/22 History release paroxetine HCl 40 mg tablet 40 mg PO HS 08/05/22 08/18/22 History nebivolol 10 mg tablet See Rx Instructions .Route 08/11/22 08/18/22 Rx .COMPLEX #90 tabs Laboratory Tests 08/18/22 08:37 POC Capillary Glucose 109 mg/dl H mg/dl (65-105) Patient hx anesthesia problems: none Family hx anesthesia problems: none Results Review: All pre-operative results and documents have been reviewed as part of the pre-operative evaluation. [facility] Past Medical History Medical History Abdominal or pelvic swelling, mass, or lump, left lower quadrant Adnexal mass (~06/2019) 8.1 centimeter hypoechoic mass in the left adnexa with differential diagnosis to include pedunculated fibroid or ovarian mass. Anxiety with depression Benign essential hypertension Bilateral carotid artery stenosis Bladder tumor (~08/2019) Status post TURBT per Dr. Herrera. Fibroids Gastroesophageal reflux disease Hearing loss Hyperlipidemia Hyperthyroidism Moderate mitral valve regurgitation Noted on [facility] in February 2016. Osteoporosis Right carotid bruit Carotid Doppler ultrasounds showed < 50% stenosis in bilateral internal carotid arteries in June 2019. Transient ischemic attack Type 2 diabetes mellitus Hemoglobin A1c was 6.1% in March 2019. Surgical History Surgical History History of bilateral tubal ligation History of laparoscopy Status post surgical removal and fulguration of bladder neoplasm (~08/2019) Family History Family History Mother Family history of osteoporosis Family history of Parkinson's disease Family history of primary malignant neoplasm of liver Family history of malignant neoplasm of breast in first degree relative Father Family history of heart disease in male family member before age 55 Family history of cardiovascular disease Family history of chronic obstructive pulmonary disease Social History Social History (Reviewed
[2022-08-18] MEDS: LIDOCAINE HCL 1% PF 30 ML VIAL 10 ML INFILTRATE (10:38)
--- NOTE | 2022-08-18 10:41 | P.OP_ITS ---
Procedure Note - Detailed Date of Procedure 08/18/22 Pre-op Diagnosis Thickened Endometrium Post-op Diagnosis Same Procedure Performed D&C hysteroscopy Surgeon Aditi Bhardwaj MD Anesthesia MAC and Local Findings stenotic internal cervix; very atrophic appearing endometrium; uterus sounds to 6cm. Description of Procedure The patient is taken to the operating room and placed under anesthesia in the dorsal lithotomy position. She was prepped and draped in the usual sterile fashion. A King bivalve speculum is placed and the cervix grasped on the anterior lip with a tenaculum. The cervix is injected in each quadrant with 1% lidocaine. The uterus is attempted to be sounded and internal cervical stenosis is encountered. The os Finders are used which opened the internal os. The uterus is then sounded to 6cm. The cervix is serially dilated to a 5 Hegar. The diagnostic hysteroscope was placed with no abnormalities noted it is then removed. The small sharp curette is used to curette the endometrium until a good uterine cry is noted in all areas. Minimal if any materials obtained consistent with the severely atrophic endometrium . Then all instruments are removed. The sponge, needle, and instrument counts are correct per the OR st aff. The patient is awakened from anesthesia and taken to recovery in stable condition. Estimated Blood Loss 5 Drains No Packing No Pathology Yes ( Endometrial curettings) Complications No immediate complications Condition Stable Disposition PACU
[2022-08-18 10:45] VITALS: BP 170/58; PULSE 71; RESP 12; O2SAT 94
[2022-08-18 10:52] LABS: Glucose Point of Care 104 mg/dl (65-105)
[2022-08-18 11:15] VITALS: BP 159/62; PULSE 72; RESP 16; O2SAT 95
[2022-08-18] MEDS: oxyCODONE HCL (*CRX) 5 MG TAB IR PO (11:20)
[2022-08-18 11:45] VITALS: BP 175/76; PULSE 67; RESP 16
[2022-08-18 11:59] VITALS: BP 176/63; PULSE 67; RESP 14
== END 2022-08-18 12:06 | disposition home or self-care (01) ==
PROVIDERS: PCP Internal Medicine; Visit Provider Obstetrics & Gynecology Gynecology
PROC: 0U5B8ZZ Destruction of Endometrium, Via Natural or Artificial Opening Endoscopic (ICD-10-PCS; CPT 58563; principal; 2022-08-18 10:00)
DX: R93.89 Abnormal findings on diagnostic imaging of other specified body structures (principal); D25.9 Leiomyoma of uterus, unspecified; F41.8 Other specified anxiety disorders; I10 Essential (primary) hypertension; K21.9 Gastro-esophageal reflux disease without esophagitis; E78.5 Hyperlipidemia, unspecified; I34.1 Nonrheumatic mitral (valve) prolapse; M81.0 Age-related osteoporosis without current pathological fracture; E11.9 Type 2 diabetes mellitus without complications; Z86.73 Personal history of transient ischemic attack (TIA), and cerebral infarction without residual deficits; Z79.82 Long term (current) use of aspirin; Z79.84 Long term (current) use of oral hypoglycemic drugs; Z79.02 Long term (current) use of antithrombotics/antiplatelets; Z87.891 Personal history of nicotine dependence
CPT/HCPCS: 58558; 36415; 82948; 85014; 85018; 88305; A9270; J1100; J2405; J2704; J3010; J7120

== ENCOUNTER 2022-09-16 08:25 | Outpatient (CLI) | payer MEDICARE, SELFPAY ==
--- NOTE | ~2022-09-16 | CT_ITS ---
EXAMINATION: CT lung screening DATE: 09/16/2022 08:46 INDICATION: Personal history of tobacco dependence TECHNIQUE: Computed tomography (CT) of the chest was performed without intravenous contrast. The dose -length product was 54.39 mGy-cm. Automated exposure control and iterative reconstruction technique w ere employed. COMPARISON: CT dated 06/20/2021 FINDINGS: There is atherosclerosis of the aorta and coronary arteries. Heart size is normal. Small hi atal hernia. No significant pleural or pericardial effusion. No thoracic lymphadenopathy. Mild emphys jennifer. There is apical pleural thickening/scarring. No endobronchial lesions. There are a few small 1-2 mm upper lobe nodules, likely benign. Mild thoracic spondylosis with accentuated kyphosis. No focal lytic or blastic lesions. IMPRESSION: 1. . Lung-RADS category 2: Benign appearance or behavior. Continue annual screening with noncontrast low-dose chest CT in 12 months. Reviewed, dictated and finalized at location A. ENT REPRESENTATIVE IMPRESSION: 1. . Lung-RADS category 2: Benign appearance or behavior. Continue annual scree kenny with noncontrast low-dose chest CT in 12 months.
== END 2022-09-16 08:26 | disposition home or self-care (01) ==
PROVIDERS: PCP Internal Medicine; Visit Provider Internal Medicine
DX: Z12.2 Encounter for screening for malignant neoplasm of respiratory organs (principal); Z87.891 Personal history of nicotine dependence
CPT/HCPCS: 71271

== ENCOUNTER 2022-11-18 10:29 | Outpatient (CLI) | payer MEDICARE, SELFPAY ==
--- NOTE | ~2022-11-18 | US_ITS ---
EXAMINATION: US retroperitoneal comp DATE: 11/18/2022 11:07 INDICATION: History of bladder cancer TECHNIQUE: Multiple grayscale and Doppler ultrasound images of the kidneys were obtained. COMPARISON: None. FINDINGS: The right kidney measures 9.1 x 5.1 x 4.3 cm. The left kidney measures 9.5 x 4.5 x 4.1 cm. The kidneys demonstrate normal parenchymal echogenicity. There is no hydronephrosis. The bladder is u nremarkable in appearance. IMPRESSION: 1. Normal kidneys without hydronephrosis. 2. Unremarkable bladder. Reviewed, dictated and finalized at location L. IENCE TRAINER
== END 2022-11-18 10:30 | disposition home or self-care (01) ==
PROVIDERS: PCP Internal Medicine; Visit Provider Urology
DX: Z08 Encounter for follow-up examination after completed treatment for malignant neoplasm (principal); Z85.51 Personal history of malignant neoplasm of bladder
CPT/HCPCS: 76770

== ENCOUNTER 2024-02-12 13:25 | Outpatient (CLI) | payer MEDICARE, SELFPAY ==
--- NOTE | ~2024-02-12 | US_ITS ---
EXAMINATION: US carotid duplex BI DATE: 02/12/2024 14:22 INDICATION: History of TIA TECHNIQUE: Grayscale, color Doppler, and pulsed Doppler images of the cervical carotid arteries were obtained. The degree of vessel stenosis is placed in one of the following categories: normal, <50%, 5 0-69%, >=70% but less than near-occlusion, near-occlusion, or total occlusion. Note that percent sten osis relative to normal distal artery lumen diameter is indirectly measured from velocity measurement s as described by Willy, et al. Radiology 2003; 229:340-346. Notes: Normal: Peak systolic velocity <125 centimeters/sec and no plaque <50%. Peak systolic velocity <125 ( EDV <40; ICA/CCA PSV ratio <2.0; used these factors only a tandem lesions or low cardiac output or co ntralateral disease) 50-69 %: PSV 125-230 (EDV 40-100; ratio 2-4) >= 70% but less than near occlusion: PSV greater than 230 (EDV > 100; ratio> 4.0) Near Occlusion: PSV that is variable; markedly narrowed lumen Occlusion: Absent flow on color/spectral Doppler and no lumen on sanchez scale. COMPARISON: None. FINDINGS: RIGHT: The right common carotid artery (CCA) peak systolic velocity (PSV) is 86 cm/s. The right internal car otid artery (ICA) PSV is 90 cm/s. The right ICA end-diastolic velocity (EDV) is 28 cm/s. The right IC A/CCA PSV ratio is 1.1. The external carotid artery (ECA) PSV is 102 cm/s. There is antegrade flow in the right vertebral artery. LEFT: The left CCA PSV is 112 cm/s. The left ICA PSV is 109 cm/s. The left ICA EDV is 26 cm/s. The left ICA /CCA PSV ratio is 1.0. The ECA PSV is 95 cm/s. There is antegrade flow in the left vertebral artery. IMPRESSION: 1. Less than 50% stenosis in the right internal carotid artery by sonographic criteria. 2. Less than 50% stenosis in the left internal carotid artery by sonographic criteria. Reviewed, dictated and finalized at location B. IMPRESSION: 1. Less than 50% stenosis in the right internal carotid artery by sonographic elise cuellar. 2. Less than 50% stenosis in the left internal carotid artery by sonographic karen ramos.
== END 2024-02-12 13:26 | disposition home or self-care (01) ==
PROVIDERS: PCP Internal Medicine; Visit Provider Internal Medicine
DX: R09.89 Other specified symptoms and signs involving the circulatory and respiratory systems (principal); I65.23 Occlusion and stenosis of bilateral carotid arteries; Z86.73 Personal history of transient ischemic attack (TIA), and cerebral infarction without residual deficits
CPT/HCPCS: 93880

== ENCOUNTER 2024-06-02 09:00 | Outpatient (CLI) | payer MEDICARE, SELFPAY ==
--- NOTE | ~2024-06-02 | CT_ITS ---
EXAMINATION:CT lung screening DATE: 06/02/2024 09:22 INDICATION: Personal history of nicotine dependence. Smoker who quit 4 years ago with 50 pack year hi story. TECHNIQUE: Computed tomography (CT) of the chest was performed without intravenous contrast. Automate d exposure control and iterative reconstruction technique were employed. The dose-length product (DLP ) was 56.56 mGy-cm. COMPARISON: Chest CT 09/16/2022 FINDINGS: There is stable mild scarring at the lung apices. There is mild emphysema. No pleural effus ion. There is left atrial enlargement of the heart. There are coronary artery calcifications. No lilia cardial effusion. There is thoracic kyphosis and severe spondylosis. IMPRESSION: 1. Lung-RADS category 2: Benign appearance or behavior. Continue annual screening with noncontrast lo w-dose chest CT in 12 months. Reviewed, dictated and finalized at location A. IMPRESSION: 1. Lung-RADS category 2: Benign appearance or behavior. Continue annual screeni ng with noncontrast low-dose chest CT in 12 months.
== END 2024-06-02 09:01 | disposition home or self-care (01) ==
PROVIDERS: PCP Internal Medicine; Visit Provider Internal Medicine
DX: Z12.2 Encounter for screening for malignant neoplasm of respiratory organs (principal); Z87.891 Personal history of nicotine dependence
CPT/HCPCS: 71271

== ENCOUNTER 2025-07-11 09:13 | Outpatient (CLI) | payer MEDICARE, SELFPAY ==
--- NOTE | ~2025-07-11 | CT_ITS ---
EXAMINATION: CT lung screening DATE: 07/11/2025 09:27 INDICATION: Personal history of nicotine dependence TECHNIQUE: Computed tomography (CT) of the chest was performed without intravenous contrast. The dose-length product was 48.74 mGy-cm. COMPARISON: CT dated 06/02/2024 FINDINGS: No significant pleural or pericardial effusion. There is atherosclerosis. Heart size normal. No lymphadenopathy. No suspicious pulmonary nodules or masses. Stable pleural thickening at the lung apices. Emphysema. Moderate thoracic spondylosis. Accentuated kyphosis. IMPRESSION: 1. Lung-RADS category 1: Negative. Continue annual screening with noncontrast low-dose chest CT in 12 months. Reviewed, dictated and finalized at location O. IMPRESSION: 1. Lung-RADS category 1: Negative. Continue annual screening with noncontrast l ow-dose chest CT in 12 months.
== END 2025-07-11 09:14 | disposition home or self-care (01) ==
LOC: MICIMG 09:14
PROVIDERS: PCP Internal Medicine; Visit Provider Internal Medicine
DX: Z12.2 Encounter for screening for malignant neoplasm of respiratory organs (principal); Z87.892 Personal history of anaphylaxis
CPT/HCPCS: 71271